=== PATIENT | female | born 1970 | race Caucasian/White ===

== ENCOUNTER 2019-09-13 11:55 | Day surgery (SDC) | payer BC ==
[2019-09-12 09:47] VITALS: BMI 29.2
[~2019-09-13 11:55] MED LIST: HEPARIN SODIUM,PORCINE 5,000 UNIT/ML 1 ML VIAL SQ ONE; LACTATED RINGERS 1,000 ML IV SCH; LIDOCAINE 1% (10MG/ML) FOR IV START INTRADERMA PRN; Pre Op ABX Message 1 EACH MISC MISCELLANE ONE
[2019-09-13] MEDS ORDERED: ONDANSETRON 4 MG/2 ML VIAL IVP ONE (12:36)
[2019-09-13] MEDS ORDERED: DEXAMETHASONE SOD PHOSPHATE 10 MG/ML 1 ML VIAL IV ONE (12:37)
--- NOTE | 2019-09-13 13:22 | P.GSHP ---
History of Present Illness H&P Date: 09/13/19 Chief Complaint: Lung cancer 48-year-old female recently diagnosed with left-sided lung cancer. Patient underwent left lower lobe lobectomy recently. Recovering nicely. Will be starting her chemotherapy soon. She has not had a port previously. Past Medical History Past Medical History: Asthma, Cancer, Fibromyalgia, Hypertension Additional Past Medical History / Comment(s): PMDD, LUNG CANCER-ON CHEMO History of Any Multi-Drug Resistant Organisms: None Reported Additional Past Surgical History / Comment(s): LEFT LOWER LUNG REMOVED 07/29/19. LIPOSUCTIONS Past Anesthesia/Blood Transfusion Reactions: No Reported Reaction Smoking Status: Never smoker - Past Family History Mother Family Medical History: No Reported History Medications and Allergies Home Medications Medication Instructions Recorded Confirmed Type Butalb/APAP/Caff 50-325-40Mg 1 tab PO Q4H PRN 09/12/19 09/12/19 History [Fioricet 50-325-40] Cyclobenzaprine [Flexeril] 10 mg PO TID PRN 09/12/19 09/12/19 History Folic Acid 1 mg PO DAILY 09/12/19 09/12/19 History Losartan [Cozaar] 50 mg PO DAILY 09/12/19 09/12/19 History Montelukast [Singulair] 10 mg PO HS 09/12/19 09/12/19 History Omeprazole [PriLOSEC] 40 mg PO DAILY 09/12/19 09/12/19 History Ondansetron [Zofran] 4 mg PO Q8HR PRN 09/12/19 09/12/19 History Sertraline [Zoloft] 50 mg PO DAILY PRN 09/12/19 09/12/19 History LORazepam [Ativan] 0.5 mg PO Q6HR PRN 09/13/19 09/13/19 History Allergies Allergy/AdvReac Type Severity Reaction Status Date / Time No Known Allergies Allergy Verified 09/13/19 12:14 Surgical - Exam Vital Signs Temp Pulse Resp BP Pulse Ox 97.4 F L 92 18 173/82 97 09/13/19 12:25 09/13/19 12:25 09/13/19 12:25 09/13/19 12:25 09/13/19 12:25 Physical exam: General: Well-developed, well-nourished HEENT: Normocephalic, sclerae nonicteric Abdomen: Nontender, nondistended Extremities: No edema Neuro: Alert and oriented Assessment and Plan (1) Lung cancer Narrative/Plan: Will proceed with Port-A-Cath placement at this time. Risks of bleeding, infection, DVT, pneumothorax, catheter malfunction, anesthesia related complications were discussed. The patient understands and wishes to proceed. Current Visit: Yes Status: Acute Code(s): C34.90 - MALIGNANT NEOPLASM OF UNSP PART OF UNSP BRONCHUS OR LUNG SNOMED Code(s): 243453341
[2019-09-13] MEDS ORDERED: MIDAZOLAM 2 MG/2 ML VIAL ONE (13:39)
[2019-09-13] MEDS ORDERED: fentaNYL (PF) 50 MCG/ML 2 ML AMP ONE (13:39)
[2019-09-13] MEDS ORDERED: LIDOCAINE 1% INJ 10MG/ML (20 ML MDV) ONE (13:39)
[2019-09-13] MEDS ORDERED: ONDANSETRON 4 MG/2 ML VIAL ONE (13:39)
[2019-09-13] MEDS ORDERED: DEXAMETHASONE SOD PHOSPHATE 10 MG/ML 1 ML VIAL ONE (13:39)
[2019-09-13] MEDS ORDERED: PROPOFOL 10 MG/ML 20 ML VIAL IV ONE (13:39)
[2019-09-13] MEDS ORDERED: LIDOCAINE 1% INJ 10MG/ML (20 ML MDV) SQ ONE (14:08)
[2019-09-13] MEDS ORDERED: HEPARIN SODIUM,PORCINE 100 UNIT/ML 5 ML VIAL IV ONE (14:09)
[2019-09-13] MEDS ORDERED: HYDROmorphone 0.5 MG/0.5 ML SYRINGE IVP PRN (14:33)
[2019-09-13] MEDS ORDERED: NALOXONE 0.4 MG/ML 1 ML VIAL IV PRN (14:33)
[2019-09-13] MEDS ORDERED: HYDROcodone/APAP 5-325MG 1 EACH TAB PO PRN (14:33)
--- NOTE | 2019-09-13 14:37 | P.OP ---
Date of Procedure: 09/13/19 Procedure(s) Performed: PREOPERATIVE DIAGNOSIS: Lung cancer POSTOPERATIVE DIAGNOSIS: Same PROCEDURE: Port-A-Cath placement with fluoroscopic and ultrasound guidance SURGEON: Sebas EBL: Minimal ANESTHESIA: Sedation COMPLICATIONS: None OPERATIVE PROCEDURE: Patient was brought and placed on the operative table in the supine position. The patient was sedated per anesthesia that time. The chest and neck were prepped and draped in usual sterile fashion. The ultrasound probe was used to identify the location of the right internal jugular vein. The skin was localized with lidocaine. The Seldinger needle was advanced into the IJ under ultrasound guidance. The wire was advanced through the needle under fluoroscopic guidance into the superior vena cava. A port pocket was created in the right infraclavicular location. The catheter was tunneled from the wire entrance site to the port pocket. The port was then connected to the catheter. The dilator introducer was threaded over the guidewire. The guidewire and dilator were then removed. The catheter was advanced through the introducer and introducer was then removed. The tip was seen to be in the right atrial junction via fluoroscopy. A picture of the radiograph showing the tip at the radial digital junction was taken. Port was flushed with both saline and a Hep- Lock solution. There was good flow both in and out of the port. The port was sutured in underlying tissues using 3-0 silk sutures. The subcutaneous tissues were reapproximated using 3-0 Vicryl sutures and the skin at both locations using 4-0 Monocryl sutures. Skin glue and sterile dressings then applied. DISPOSITION: Stable to recovery room Disposition: PACU
[2019-09-13 14:43] VITALS: TEMP 98.6
[2019-09-13 15:07] VITALS: RESP 16
--- NOTE | 2019-09-13 15:25 | XR ---
EXAMINATION TYPE: XR chest 1V confirm line [facility] DATE OF EXAM: 09/13/2019 COMPARISON: NONE HISTORY: Status post central venous catheter placement TECHNIQUE: Single frontal view of the chest is obtained. FINDINGS: Right-sided port is in place, right jugular approach, distal tips overlying the cavoatrial junction. There is no pneumothorax or pleural effusion. Subsegmental basilar atelectatic changes pos sible in the left lung base. Heart size is normal. IMPRESSION: No evident complication status post central venous catheter placement.
[2019-09-13] MEDS ORDERED: METOPROLOL TARTRATE 5 MG/5 ML VIAL IVP ONE (15:51)
[2019-09-13 16:30] VITALS: BP 147/88; PULSE 90
--- NOTE | 2019-09-14 09:38 | FL ---
Fluoroscopy HISTORY: Central venous catheter placement 4 seconds fluoroscopy time supplied to the referring clinician. 1 intraoperative C-arm images docume nt the procedure. See dictated report from general surgery.
== END 2019-09-13 16:40 | disposition home or self-care (01) ==
LOC: OR 11:55
PROVIDERS: ATTEND Surgery
DX: C34.92 Malignant neoplasm of unspecified part of left bronchus or lung (principal); I10 Essential (primary) hypertension; J45.909 Unspecified asthma, uncomplicated; M79.7 Fibromyalgia; Z90.2 Acquired absence of lung [part of]; Z79.899 Other long term (current) drug therapy
CPT/HCPCS: 81025; 77001; 36561; C1788; J2250; J1644; J1642; J1100; J0690; J2405; J2001; J3010; J2704

== ENCOUNTER → 2019-10-25 | Outpatient (CLI) | payer BC ==
--- NOTE | 2019-10-26 09:56 | ECHOF ---
Referral Reason:Z01.818 Chemo Exposure MEASUREMENTS -------- HEIGHT: 162.6 cm WEIGHT: 77.6 kg BP: RVIDd: 3.0 cm (< 3.3) IVSd: 1.2 cm (0.6 - 1.1) LVIDd: 3.6 cm (3.9 - 5.3) LVPWd: 1.2 cm (0.6 - 1.1) IVSs: 1.8 cm LVIDs: 2.1 cm LVPWs: 1.5 cm LAESV Index (A-L): 15.70 ml/m Ao Diam: 2.5 cm (2.0 - 3.7) AV Cusp: 1.8 cm (1.5 - 2.6) MV EXCURSION: 14.881 mm (> 18.000) MV EF SLOPE: 63 mm/s (70 - 150) EPSS: 0.4 cm MV E Hany: 0.66 m/s MV DecT: 166 ms MV A Hany: 0.92 m/s MV E/A Ratio: 0.72 RAP: 5.00 mmHg RVSP: 26.32 mmHg FINDINGS -------- Sinus rhythm. This was a technically adequate study. The left ventricular size is normal. There is mild concentric left ventricular hypertrophy. Overa ll left ventricular systolic function is normal with, an EF between 55 - 60 %. The diastolic fillin g pattern is normal for the age of the patient 12.64. The right ventricle is normal in size. Normal LA size by volume 22+/-6 ml/m2. The right atrial size is normal. Interatrial and interventricular septum intact. There is no evidence of aortic regurgitation. There is no evidence of aortic stenosis. There is trace to mild mitral regurgitation. Mild tricuspid regurgitation present. There is no evidence of pulmonary hypertension. The right v entricular systolic pressure, as measured by Doppler, is 26.32mmHg. There is no pulmonic regurgitation present. The aortic root size is normal. Normal inferior vena cava with normal inspiratory collapse consistent with estimated right atrial pre ssure of 5 mmHg. Echo free space may represent effusion or a pericardial fat pad. CONCLUSIONS -------- 1. The left ventricular size is normal. 2. There is mild concentric left ventricular hypertrophy. 3. Overall left ventricular systolic function is normal with, an EF between 55 - 60 %. 4. The diastolic filling pattern is normal for the age of the patient 12.64 5. There is trace to mild mitral regurgitation. 6. Mild tricuspid regurgitation present. 7. Echo free space may represent effusion or a pericardial fat pad. CONVEYOR SYSTEM DISPATCHER: Gaby Miller RDCS
== END | disposition home or self-care (01) ==
LOC: RADECHMAIN 14:38
PROVIDERS: ATTEND Internal Medicine Hematology & Oncology
DX: Z01.818 Encounter for other preprocedural examination (principal); I08.1 Rheumatic disorders of both mitral and tricuspid valves
CPT/HCPCS: 93306

== ENCOUNTER 2019-11-07 21:03 | Inpatient (IN) | payer BC ==
[2019-11-07] MEDS ORDERED: SODIUM CHLORIDE 0.9% 2,000 ML IV ONE (21:16)
[2019-11-07 22:03] LABS: Glucose,Whole Blood >600 mg/dL (75-99)
[2019-11-07] MEDS: INSULIN REGULAR 100 UNIT in SODIUM CHLORIDE 0.9% 100 ML IV SCH (22:08)
[2019-11-07 22:15] LABS: Basophils % (A) 0 %; Eosinophils % (A) 0 %; HCT 42.2 % (34.0-46.0); HGB 13.7 gm/dL (11.4-16.0); Lymphocytes # (A) 1.4 k/uL (1.0-4.8); Lymphocytes % (A) 19 %; MCHC 32.5 g/dL (31.0-37.0); MCV 101.6 fL (80.0-100.0); Macrocytosis Slight; Mean Platelet Volume 7.9; Monocytes # (A) 0.2 k/uL (0-1.0); Monocytes % (A) 2 %; Neutrophils # (A) 5.6 k/uL (1.3-7.7); Neutrophils % (A) 78 %; Platelet Count 148 k/uL (150-450); RBC 4.15 m/uL (3.80-5.40); RDW 14.6 % (11.5-15.5); WBC 7.2 k/uL (3.8-10.6)
[2019-11-07 22:16] LABS: VBG PH 7.3 (7.31-7.41)
[2019-11-07 22:17] LABS: Appearance,Urine Clear (Clear); Bilirubin,Urine Negative (Negative); Blood,Urine Moderate (Negative); Color,Urine Colorless; Glucose,Urine (UA) 4+ (Negative); Hyaline Casts,Urine 1 /lpf (0-2); Ketones,Urine 1+ (Negative); Leukocyte Esterase,Urine Negative (Negative); Nitrite,Urine Negative (Negative); Protein,Urine Negative (Negative); RBC,Urine 1 /hpf (0-5); Squamous Epithelial Cell,Urine <1 /hpf (0-4); Urobilinogen,Urine <2.0 mg/dL (<2.0); WBC,Urine 1 /hpf (0-5)
[2019-11-07 22:24] LABS: ALT 128 U/L (4-34); AST 73 U/L (14-36); African American GFR (CKD) 84 (>60 ml/min/1.73 sqM); Albumin 4.6 g/dL (3.5-5.0); Alkaline Phosphatase 217 U/L (38-126); Anion Gap 21 mmol/L; Blood Urea Nitrogen 32 mg/dL (7-17); Calcium 10.2 mg/dL (8.4-10.2); Carbon Dioxide 17 mmol/L (22-30); Chloride 91 mmol/L (98-107); Non-African American GFR(CKD) 73 (>60 ml/min/1.73 sqM); Potassium 5.1 mmol/L (3.5-5.1); Sodium 129 mmol/L (137-145); Total Bilirubin 0.8 mg/dL (0.2-1.3); Total Protein 7.1 g/dL (6.3-8.2)
[2019-11-07 22:35] LABS: Glucose 1074 mg/dL (74-99)
--- NOTE | 2019-11-07 22:53 | ED ---
General Adult HPI - General Source: patient, family, RN notes reviewed Mode of arrival: ambulatory Limitations: no limitations <Fortunato De La Rosa - Last Filed: 11/07/19 22:45> <Christal Viera - Last Filed: 11/08/19 07:20> - General Chief complaint: Recheck/Abnormal Lab/Rx Stated complaint: High blood sugar Time Seen by Provider: 11/07/19 21:09 - History of Present Illness Initial comments: This a 49-year-old female presents emergency Department chief complaint of abnormal labs. Patient states that she went in for IV fluids today and had some labs drawn by her oncologist called her with an elevated glucose. Patient has no history of diabetes. Patient states she recently finished her chemotherapy for lung cancer. Patient states that she's been very thirsty, lethargic very fatigued. Patient denies any abdominal pain. Denies any known fevers or chills. Patient states that she was on some steroids. Patient denies any other associated complaints. (Fortunato De La Rosa) - Related Data Home Medications Medication Instructions Recorded Confirmed Butalb/APAP/Caff 50-325-40Mg 1 tab PO Q4H PRN 09/12/19 11/07/19 [Fioricet 50-325-40] Folic Acid 1 mg PO DAILY 09/12/19 11/07/19 Losartan [Cozaar] 50 mg PO DAILY 09/12/19 11/07/19 Omeprazole [PriLOSEC] 40 mg PO DAILY 09/12/19 11/07/19 Ondansetron [Zofran] 4 mg PO Q8HR PRN 09/12/19 11/07/19 LORazepam [Ativan] 0.5 mg PO Q6HR PRN 09/13/19 11/07/19 Metoprolol Tartrate [Lopressor] 50 mg PO DAILY PRN 09/13/19 11/07/19 Albuterol Inhaler [Ventolin Hfa 1 puff INHALATION RT-QID PRN 11/07/19 11/07/19 Inhaler] Cetirizine HCl [Zyrtec] 10 mg PO DAILY 11/07/19 11/07/19 Fluticasone/Salmeterol [Advair 1 puff PO DAILY PRN 11/07/19 11/07/19 100-50 Diskus] OLANZapine [ZyPREXA] 2.5 mg PO HS 11/07/19 11/07/19 Allergies Allergy/AdvReac Type Severity Reaction Status Date / Time No Known Allergies Allergy Verified 11/07/19 23:25 Review of Systems ROS Other: All systems not noted in ROS Statement are negative. <Fortunato De La Rosa - Last Filed: 11/07/19 22:45> ROS Other: All systems not noted in ROS Statement are negative. <Christal Viera - Last Filed: 11/08/19 07:20> ROS Statement: Those systems with pertinent positive or pertinent negative responses have been documented in the HPI. Past Medical History Past Medical History: Asthma, Cancer, Fibromyalgia, Hypertension Additional Past Medical History / Comment(s): PMDD, LUNG CANCER-ON CHEMO History of Any Multi-Drug Resistant Organisms: None Reported Additional Past Surgical History / Comment(s): LEFT LOWER LUNG REMOVED 07/29/19. LIPOSUCTIONS Past Anesthesia/Blood Transfusion Reactions: No Reported Reaction Past Psychological History: No Psychological Hx Reported Smoking Status: Never smoker Past Alcohol Use History: None Reported, Occasional Past Drug Use History: None Reported - Past Family History Mother Family Medical History: No Reported History <Fortunato De La Rosa - Last Filed: 11/07/19 22:45> General Exam Limitations: no limitations General appearance: alert, in no apparent distress Head exam: Present: atraumatic, normocephalic, normal inspection Eye exam: Present: normal appearance, PERRL, EOMI. Absent: scleral icterus, conjunctival injection, periorbital swelling ENT exam: Present: normal exam, normal oropharynx, mucous membranes moist, TM's normal bilaterally Neck exam: Present: normal inspection, full ROM. Absent: tenderness, meningismus, lymphadenopathy Respiratory exam: Present: normal lung sounds bilaterally. Absent: respiratory distress, wheezes, rales, rhonchi, stridor Cardiovascular Exam: Present: normal rhythm, tachycardia, normal heart sounds. Absent: systolic murmur, diastolic murmur, rubs, gallop, clicks GI/Abdominal exam: Present: soft, normal bowel sounds. 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 ] Respiratory 22 18 16 Rate Blood Pressure 139/92 125/88 Blood Pressure 127/87 [Left Arm] O2 Sat by Pulse 98 96 Oximetry EKG Findings - EKG Comments: EKG Findings:: EKG performed at 22:72 normal sinus rhythm rate of 99 CT 136 QRS 80 QT/QTC 350/449 <Fortunato De La Rosa - Last Filed: 11/07/19 22:45> Medical Decision Making - Lab Data Result diagrams: 11/07/19 22:06 11/07/19 22:06 <Fortunato De La Rosa - Last Filed: 11/07/19 22:45> - Lab Data Result diagrams: 11/08/19 05:43 11/08/19 05:43 <Christal Viera - Last Filed: 11/08/19 07:20> - Medical Decision Making 49-year-old female presentedfor hyperglycemia. Patient has glucose of 1074. Patient has no history of diabetes. Patient was started on IV fluids, insulin. Patient admitted for further management treatment. (Fortunato De La Rosa) - Lab Data Lab Results 11/07/19 11/07/19 11/07/19 Range/Units 22:01 22:06 22:06 WBC 7.2 (3.8-10.6) k/uL RBC 4.15 (3.80-5.40) m/uL Hgb 13.7 (11.4-16.0) gm/dL Hct 42.2 (34.0-46.0) % MCV 101.6 H (80.0-100.0) fL MCH 33.0 (25.0-35.0) pg MCHC 32.5 (31.0-37.0) g/dL RDW 14.6 (11.5-15.5) % Plt Count 148 L (150-450) k/uL Neutrophils % 78 % Lymphocytes % 19 % Monocytes % 2 % Eosinophils % 0 % Basophils % 0 % Neutrophils # 5.6 (1.3-7.7) k/uL Lymphocytes # 1.4 (1.0-4.8) k/uL Monocytes # 0.2 (0-1.0) k/uL Eosinophils # 0.0 (0-0.7) k/uL Basophils # 0.0 (0-0.2) k/uL Macrocytosis Slight VBG pH (7.31-7.41) VBG pCO2 (37-51) mmHg VBG HCO3 (24-28) mmol/L Sodium 129 L (137-145) mmol/L Potassium 5.1 (3.5-5.1) mmol/L Chloride 91 L (98-107) mmol/L Carbon Dioxide 17 L (22-30) mmol/L Anion Gap 21 mmol/L BUN 32 H (7-17) mg/dL Creatinine 0.92 (0.52-1.04) mg/dL Est GFR (CKD-EPI)AfAm 84 (>60 ml/min/1.73 sqM) Est GFR (CKD-EPI)NonAf 73 (>60 ml/min/1.73 sqM) Glucose 1074 H* (74-99) mg/dL POC Glucose (mg/dL) >600 H (75-99) mg/dL POC Glu Eyeglass Frames Polisher ID Laila, [place] Lactic Ac Sepsis Rflx Plasma Lactic Acid Abel (0.7-2.0) mmol/L Calcium 10.2 (8.4-10.2) mg/dL Magnesium 2.0 (1.6-2.3) mg/dL Total Bilirubin 0.8 (0.2-1.3) mg/dL AST 73 H (14-36) U/L ALT 128 H (4-34) U/L Alkaline Phosphatase 217 H (38-126) U/L Total Protein 7.1 (6.3-8.2) g/dL Albumin 4.6 (3.5-5.0) g/dL Lipase 85 (23-300) U/L Urine Color Urine Appearance (Clear) Urine pH (5.0-8.0) Ur Specific [place] (1.001-1.035) Urine Protein (Negative) Urine Glucose (UA) (Negative) Urine Ketones (Negative) Urine Blood (Negative) Urine Nitrite (Negative) Urine Bilirubin (Negative) Urine Urobilinogen (<2.0) mg/dL Ur Leukocyte Esterase (Negative) Urine RBC (0-5) /hpf Urine WBC (0-5) /hpf Ur Squamous Epith Cells (0-4) /hpf Hyaline Casts (0-2) /lpf Acetone, Qual Positive (Negative) 11/07/19 11/07/19 11/07/19 Range/Units 22:06 22:06 22:06 WBC (3.8-10.6) k/uL RBC (3.80-5.40) m/uL Hgb (11.4-16.0) gm/dL Hct (34.0-46.0) % MCV (80.0-100.0) fL MCH (25.0-35.0) pg MCHC (31.0-37.0) g/dL RDW (11.5-15.5) % Plt Count (150-450) k/uL Neutrophils % % Lymphocytes % % Monocytes % % Eosinophils % % Basophils % % Neutrophils # (1.3-7.7) k/uL Lymphocytes # (1.0-4.8) k/uL Monocytes # (0-1.0) k/uL Eosinophils # (0-0.7) k/uL Basophils # (0-0.2) k/uL Macrocytosis VBG pH 7.30 L (7.31-7.41) VBG pCO2 41 (37-51) mmHg VBG HCO3 20 L (24-28) mmol/L Sodium (137-145) mmol/L Potassium (3.5-5.1) mmol/L Chloride (98-107) mmol/L Carbon Dioxide (22-30) mmol/L Anion Gap mmol/L BUN (7-17) mg/dL Creatinine (0.52-1.04) mg/dL Est GFR (CKD-EPI)AfAm (>60 ml/min/1.73 sqM) Est GFR (CKD-EPI)NonAf (>60 ml/min/1.73 sqM) Glucose (74-99) mg/dL POC Glucose (mg/dL) (75-99) mg/dL POC Glu Eyeglass Frames Polisher ID Lactic Ac Sepsis Rflx Plasma Lactic Acid Abel 2.5 H* (0.7-2.0) mmol/L Calcium (8.4-10.2) mg/dL Magnesium (1.6-2.3) mg/dL Total Bilirubin (0.2-1.3) mg/dL AST (14-36) U/L ALT (4-34) U/L Alkaline Phosphatase (38-126) U/L Total Protein (6.3-8.2) g/dL Albumin (3.5-5.0) g/dL Lipase (23-300) U/L Urine Color Colorless Urine Appearance Clear (Clear) Urine pH 5.0 (5.0-8.0) Ur Specific [place] 1.030 (1.001-1.035) Urine Protein Negative (Negative) Urine Glucose (UA) 4+ H (Negative) Urine Ketones 1+ H (Negative) Urine Blood Moderate H (Negative) Urine Nitrite Negative (Negative) Urine Bilirubin Negative (Negative) Urine Urobilinogen <2.0 (<2.0) mg/dL Ur Leukocyte Esterase Negative (Negative) Urine RBC 1 (0-5) /hpf Urine WBC 1 (0-5) /hpf Ur Squamous Epith Cells <1 (0-4) /hpf Hyaline Casts 1 (0-2) /lpf Acetone, Qual (Negative) 11/07/19 11/07/19 Range/Units 22:35 23:11 WBC (3.8-10.6) k/uL RBC (3.80-5.40) m/uL Hgb (11.4-16.0) gm/dL Hct (34.0-46.0) % MCV (80.0-100.0) fL MCH (25.0-35.0) pg MCHC (31.0-37.0) g/dL RDW (11.5-15.5) % Plt Count (150-450) k/uL Neutrophils % % Lymphocytes % % Monocytes % % Eosinophils % % Basophils % % Neutrophils # (1.3-7.7) k/uL Lymphocytes # (1.0-4.8) k/uL Monocytes # (0-1.0) k/uL Eosinophils # (0-0.7) k/uL Basophils # (0-0.2) k/uL Macrocytosis VBG pH (7.31-7.41) VBG pCO2 (37-51) mmHg VBG HCO3 (24-28) mmol/L Sodium (137-145) mmol/L Potassium (3.5-5.1) mmol/L Chloride (98-107) mmol/L Carbon Dioxide (22-30) mmol/L Anion Gap mmol/L BUN (7-17) mg/dL Creatinine (0.52-1.04) mg/dL Est GFR (CKD-EPI)AfAm (>60 ml/min/1.73 sqM) Est GFR (CKD-EPI)NonAf (>60 ml/min/1.73 sqM) Glucose (74-99) mg/dL POC Glucose (mg/dL) >600 H (75-99) mg/dL POC Glu Eyeglass Frames Polisher ID Savannah Vazquez Lactic Ac Sepsis Rflx Y Plasma Lactic Acid Abel (0.7-2.0) mmol/L Calcium (8.4-10.2) mg/dL Magnesium (1.6-2.3) mg/dL Total Bilirubin (0.2-1.3) mg/dL AST (14-36) U/L ALT (4-34) U/L Alkaline Phosphatase (38-126) U/L Total Protein (6.3-8.2) g/dL Albumin (3.5-5.0) g/dL Lipase (23-300) U/L Urine Color Urine Appearance (Clear) Urine pH (5.0-8.0) Ur Specific [place] (1.001-1.035) Urine Protein (Negative) Urine Glucose (UA) (Negative) Urine Ketones (Negative) Urine Blood (Negative) Urine Nitrite (Negative) Urine Bilirubin (Negative) Urine Urobilinogen (<2.0) mg/dL Ur Leukocyte Esterase (Negative) Urine RBC (0-5) /hpf Urine WBC (0-5) /hpf Ur Squamous Epith Cells (0-4) /hpf Hyaline Casts (0-2) /lpf Acetone, Qual (Negative) Critical Care Time Critical Care Time: Yes Total Critical Care Time: 35 <Fortunato De La Rosa - Last Filed: 11/07/19 22:45> Critical Care Time: Total 35 minutes of critical care time is initially evaluated the patient, reviewed past medical history according labs, EKG. Patient started on IV fluid bolus, maintenance fluids, insulin drip. Patient will be admitted for further management treatment case discussed with admitting physician. (Fortunato De La Rosa) Disposition <Fortunato De La Rosa - Last Filed: 11/07/19 22:45> <Christal Viera - Last Filed: 11/08/19 07:20> Clinical Impression: Diabetes mellitus, new onset, Hyperglycemia, Metabolic acidosis, DKA (diabetic ketoacidoses) Disposition: ADMITTED IP TO THIS HOSP Condition: Serious
[2019-11-07 23:13] LABS: Glucose,Whole Blood >600 mg/dL (75-99)
[2019-11-08 00:12] LABS: Glucose,Whole Blood 553 mg/dL (75-99)
[2019-11-08] MEDS: SODIUM CHLORIDE 0.9% 1,000 ML IV SCH ×5 (00:21→19:59)
[2019-11-08 00:32] LABS: Glucose,Whole Blood 569 mg/dL (75-99)
[2019-11-08 02:05] LABS: African American GFR (CKD) >90 (>60 ml/min/1.73 sqM); Anion Gap 11 mmol/L; Blood Urea Nitrogen 28 mg/dL (7-17); Carbon Dioxide 20 mmol/L (22-30); Chloride 106 mmol/L (98-107); Non-African American GFR(CKD) >90 (>60 ml/min/1.73 sqM); Potassium 3.9 mmol/L (3.5-5.1); Sodium 137 mmol/L (137-145)
[2019-11-08 02:07] LABS: Glucose 531 mg/dL (74-99)
[2019-11-08 02:09] LABS: Glucose,Whole Blood 446 mg/dL (75-99)
[2019-11-08 03:05] LABS: Glucose,Whole Blood 418 mg/dL (75-99)
[2019-11-08 04:07] LABS: Glucose,Whole Blood 371 mg/dL (75-99)
[2019-11-08 05:04] LABS: Glucose,Whole Blood 338 mg/dL (75-99)
[2019-11-08 06:03] LABS: Glucose,Whole Blood 306 mg/dL (75-99)
[2019-11-08 06:04] LABS: HCT 34.4 % (34.0-46.0); HGB 11.5 gm/dL (11.4-16.0); MCH 32.4 pg (25.0-35.0); MCHC 33.3 g/dL (31.0-37.0); MCV 97.1 fL (80.0-100.0); Platelet Count 115 k/uL (150-450); RBC 3.54 m/uL (3.80-5.40); RDW 14.6 % (11.5-15.5); WBC 8.3 k/uL (3.8-10.6)
[2019-11-08 06:13] LABS: African American GFR (CKD) >90 (>60 ml/min/1.73 sqM); Anion Gap 7 mmol/L; Blood Urea Nitrogen 23 mg/dL (7-17); Carbon Dioxide 26 mmol/L (22-30); Chloride 108 mmol/L (98-107); Glucose 297 mg/dL (74-99); Non-African American GFR(CKD) 88 (>60 ml/min/1.73 sqM); Phosphorus 2.6 mg/dL (2.5-4.5); Potassium 3.8 mmol/L (3.5-5.1); Sodium 141 mmol/L (137-145)
[2019-11-08] MEDS ORDERED: D5-0.45% NACL WITH KCL 20MEQ/L 1,000 ML IV SCH (07:00)
[2019-11-08 07:19] LABS: Glucose,Whole Blood 219 mg/dL (75-99)
[2019-11-08 08:03] LABS: Glucose,Whole Blood 208 mg/dL (75-99)
[2019-11-08] MEDS: INSULIN REGULAR 100 UNIT in SODIUM CHLORIDE 0.9% 100 ML IV SCH (08:09)
--- NOTE | 2019-11-08 09:28 | XR ---
EXAMINATION TYPE: XR chest 1V portable DATE OF EXAM: 11/08/2019 COMPARISON: Prior chest x-ray 09/13/2019 HISTORY: Left lower lobe lung mass TECHNIQUE: Single frontal view of the chest is obtained. FINDINGS: Findings are similar to prior exam. Right-sided Port-A-Cath is present with the distal tip overlying the superior vena cava, right jugular approach. There is no evident pneumothorax or pleura l effusion. There is some retrocardiac density suspected. Heart size is stable, patient is rotated. T here may be spinal curvature. Bone mineralization is normal. IMPRESSION: Some retrocardiac density is indeterminate
[2019-11-08] MEDS ORDERED: INSULIN DETEMIR (LEVEMIR) 100 UNIT/ML SYR SQ ONE ×2 (09:39→18:00)
[2019-11-08] MEDS ORDERED: METOPROLOL TARTRATE 50 MG TAB PO PRN (11:08)
[2019-11-08] MEDS ORDERED: ALBUTEROL HFA INHALER INHALATION PRN (11:08)
[2019-11-08] MEDS ORDERED: ONDANSETRON 4 MG TAB PO PRN (11:08)
[2019-11-08] MEDS ORDERED: BUTALB/APAP/CAFF 50-325-40MG TAB PO PRN (11:08)
[2019-11-08 12:26] LABS: Glucose,Whole Blood 406 mg/dL (75-99)
[2019-11-08] MEDS: PANTOPRAZOLE 40 MG TABLET PO SCH (12:36)
[2019-11-08] MEDS: LOSARTAN 50 MG TAB PO SCH (12:39)
[2019-11-08] MEDS: FOLIC ACID 1 MG TAB PO SCH (12:39)
[2019-11-08] MEDS: INSULIN ASPART (NovoLOG) 100 UNIT/ML VIAL SQ SCH ×4 (12:39→20:21)
[2019-11-08] MEDS: LORATADINE 10 MG TAB PO SCH (12:39)
--- NOTE | 2019-11-08 13:02 | P.CNPUL ---
History of Present Illness Consult date: 11/08/19 Requesting physician: Paul More Reason for consult: other (Acute DKA) Chief complaint: High blood sugar. History of present illness: This is a 49-year-old female with recently diagnosed bronchogenic carcinoma, patient underwent lobectomy at [facility] back in July. Patient was found to have 2 separate malignant lesions in the same lobe, underwent lobectomy and she was advised to follow up with oncology. Patient saw Dr. Dawson and she was started on chemotherapy about 6 weeks ago. She had a salvador catheter placed by Dr. villalobos on 09/13/19. Patient has been complaining of weakness, thirst he most of the time, generalized fatigue, and her oncologist recommended IV fluids which were given in his office, and labs were drawn. Patient was later notified that her blood sugar is extremely high, and she needed to come to the emergency room. Patient is all done with her chemotherapy for lung cancer. She has been receiving steroids along with her chemotherapy. She had no previous history of diabetes. But she did have gestational diabetes years ago. Repeat blood sugar in the ER was 1232. Her basic metabolic profile showed pseudohyponatremia with a sodium of 129. Bicarb was 17 and anion gap was 21. She had positive ketones. Normal lipase. Patient was admitted, started on the DKA protocol, and this consult was initiated. Overnight the patient was on insulin drip, and when I saw her this morning, her labs seem to be significantly improved. Anion gap has been closed, and her blood sugar was running to 97 this morning. Patient was on D5 45 which I changed to 0.9 normal saline, and I recommended placing the patient on the subcu insulin protocol. Levemir insulin was also ordered. Plan to transfer the patient to a regular medical floor today. Review of Systems Constitutional: Weakness fatigue malaise, no weight loss. HEENT: Negative. Pulmonary: Negative. GI: Negative. Genitourinary: Frequent urination. Endocrine: Excessive thirst and excessive polydipsia. Musculoskeletal: Weakness and fatigue Endocrine: Negative Hematologic: Negative Psychiatric: Negative Skin: Negative Cardiac: Negative Past Medical History Past Medical History: Asthma, Cancer, Hypertension Additional Past Medical History / Comment(s): PMDD, LUNG CANCER-ON CHEMO History of Any Multi-Drug Resistant Organisms: None Reported Additional Past Surgical History / Comment(s): LEFT LOWER LUNG REMOVED 07/29/19. LIPOSUCTIONS Past Anesthesia/Blood Transfusion Reactions: No Reported Reaction Additional Past Anesthesia/Blood Transfusion Reaction / Comment(s): Never had a blood transfusion Past Psychological History: Anxiety Smoking Status: Never smoker Past Alcohol Use History: None Reported, Occasional Additional Past Alcohol Use History / Comment(s): NOT CURRENTLY USING ALCOHOL RELATED TO CURRENT CHEMO Past Drug Use History: None Reported - Past Family History Mother Family Medical History: No Reported History Medications and Allergies Home Medications Medication Instructions Recorded Confirmed Type Butalb/APAP/Caff 50-325-40Mg 1 tab PO Q4H PRN 09/12/19 11/07/19 History [Fioricet 50-325-40] Folic Acid 1 mg PO DAILY 09/12/19 11/07/19 History Losartan [Cozaar] 50 mg PO DAILY 09/12/19 11/07/19 History Omeprazole [PriLOSEC] 40 mg PO DAILY 09/12/19 11/07/19 History Ondansetron [Zofran] 4 mg PO Q8HR PRN 09/12/19 11/07/19 History LORazepam [Ativan] 0.5 mg PO Q6HR PRN 09/13/19 11/07/19 History Metoprolol Tartrate [Lopressor] 50 mg PO DAILY PRN 09/13/19 11/07/19 History Albuterol Inhaler [Ventolin Hfa 1 puff INHALATION RT-QID PRN 11/07/19 11/07/19 History Inhaler] Cetirizine HCl [Zyrtec] 10 mg PO DAILY 11/07/19 11/07/19 History Fluticasone/Salmeterol [Advair 1 puff PO DAILY PRN 11/07/19 11/07/19 History 100-50 Diskus] OLANZapine [ZyPREXA] 2.5 mg PO HS 11/07/19 11/07/19 History Allergies Allergy/AdvReac Type Severity Reaction Status Date / Time No Known Allergies Allergy Verified 11/07/19 23:25 Physical Exam Vitals: Vital Signs Temp Pulse Pulse Resp BP BP Pulse Ox 11/08/19 09:00 87 15 126/82 97 11/08/19 08:00 98 F 90 16 123/81 96 08/11/20 07:00 79 16 121/76 96 11/08/19 06:00 86 16 115/80 96 11/08/19 05:00 82 16 119/77 95 11/08/19 04:00 98.2 F 83 13 104/72 95 11/08/19 03:00 83 16 105/73 96 11/08/19 02:00 86 16 100/69 95 11/08/19 01:45 98 F 91 18 123/83 96 11/08/19 00:13 83 16 125/88 96 11/07/19 23:50 98 F 90 18 127/87 11/07/19 21:04 98.0 F 120 H 22 139/92 98 Intake and Output 11/07/19 11/08/19 11/08/19 22:59 06:59 14:59 Intake Total 1451.397 449.603 Output Total 350 40 Balance 1101.397 409.603 Intake: IV 1200 400 Sodium Chloride 0.9% 1, 1200 400 000 ml @ 200 mls/hr IV . Q5H ALESSANDRA Rx#:[id number] Intake, IV Titration 51.397 49.603 Amount Insulin Regular 100 unit 51.397 49.603 In Sodium Chloride 0.9% 100 ml @ 0.1 UNITS/KG/HR 7.788 mls/hr IV .[id number] ALESSANDRA Rx#:[id number] Oral 200 Output: Urine 350 40 Other: # Voids 1 Weight 77.111 kg 77.111 kg Physical Exam: Revealed 49-year-old female in no distress. Head: Atraumatic, normocephalic. HEENT:[Neck is supple.] [No neck masses.] [No thyromegaly.] [No JVD.] Chest: [Clear throughout, no crackles, no rhonchi, no wheezes.] Cardiac Exam: [Normal S1 and S2, no S3 gallop, no murmur.] Abdomen: [Soft, nontender, no megaly, no rebound, no guarding, normal bowel sounds.] Extremities: [No clubbing, no edema, no cyanosis.] Neurological Exam: [No focal neurologic deficit.] Alert oriented 3. Psychiatric: Normal mood, affect and normal mental status examination. Skin: No rashes. Lymphatics: No lymphadenopathy. Results - Laboratory Findings CBC and BMP: 11/08/19 05:43 11/08/19 05:43 Abnormal lab findings: Abnormal Labs 11/07/19 11/07/19 11/07/19 22:01 22:06 22:06 RBC MCV 101.6 H Plt Count 148 L VBG pH VBG HCO3 Sodium 129 L Chloride 91 L Carbon Dioxide 17 L BUN 32 H Glucose 1074 H* POC Glucose (mg/dL) >600 H Plasma Lactic Acid Abel AST 73 H ALT 128 H Alkaline Phosphatase 217 H Urine Glucose (UA) Urine Ketones Urine Blood 11/07/19 11/07/19 11/07/19 22:06 22:06 22:06 RBC MCV Plt Count VBG pH 7.30 L VBG HCO3 20 L Sodium Chloride Carbon Dioxide BUN Glucose POC Glucose (mg/dL) Plasma Lactic Acid Abel 2.5 H* AST ALT Alkaline Phosphatase Urine Glucose (UA) 4+ H Urine Ketones 1+ H Urine Blood Moderate H 11/07/19 11/08/19 11/08/19 23:11 00:10 00:31 RBC MCV Plt Count VBG pH VBG HCO3 Sodium Chloride Carbon Dioxide BUN Glucose POC Glucose (mg/dL) >600 H 553 H 569 H Plasma Lactic Acid Abel AST ALT Alkaline Phosphatase Urine Glucose (UA) Urine Ketones Urine Blood 11/08/19 11/08/19 11/08/19 01:38 01:38 02:07 RBC MCV Plt Count VBG pH VBG HCO3 Sodium Chloride Carbon Dioxide 20 L BUN 28 H Glucose 531 H* POC Glucose (mg/dL) 446 H Plasma Lactic Acid Abel 2.6 H* AST ALT Alkaline Phosphatase Urine Glucose (UA) Urine Ketones Urine Blood 11/08/19 11/08/19 11/08/19 03:04 04:05 05:02 RBC MCV Plt Count VBG pH VBG HCO3 Sodium Chloride Carbon Dioxide BUN Glucose POC Glucose (mg/dL) 418 H 371 H 338 H Plasma Lactic Acid Abel AST ALT Alkaline Phosphatase Urine Glucose (UA) Urine Ketones Urine Blood 11/08/19 11/08/19 11/08/19 05:43 05:43 05:43 RBC 3.54 L MCV Plt Count 115 L VBG pH VBG HCO3 Sodium Chloride 108 H Carbon Dioxide BUN 23 H Glucose 297 H POC Glucose (mg/dL) Plasma Lactic Acid Abel 2.3 H* AST ALT Alkaline Phosphatase Urine Glucose (UA) Urine Ketones Urine Blood 11/08/19 11/08/19 11/08/19 06:01 07:17 08:01 RBC MCV Plt Count VBG pH VBG HCO3 Sodium Chloride Carbon Dioxide BUN Glucose POC Glucose (mg/dL) 306 H 219 H 208 H Plasma Lactic Acid Abel AST ALT Alkaline Phosphatase Urine Glucose (UA) Urine Ketones Urine Blood 11/08/19 12:24 RBC MCV Plt Count VBG pH VBG HCO3 Sodium Chloride Carbon Dioxide BUN Glucose POC Glucose (mg/dL) 406 H Plasma Lactic Acid Abel AST ALT Alkaline Phosphatase Urine Glucose (UA) Urine Ketones Urine Blood - Diagnostic Findings Chest x-ray: image reviewed (Chest x-ray showed no evidence of active disease.) Assessment and Plan Assessment: Impression: Acute DKA. Suspect new onset diabetes History of gestational diabetes. History of bronchogenic carcinoma and previous lobectomy. Left lower lobe History of mild stable bronchial asthma. History of fibromyalgia. Benign essential hypertension. Recommendation: Continue to follow the protocol for DKA. Patient will be placed on 0.9 normal saline at 1 25 mL per hour. Changed to sliding scale insulin and follow the protocol. Changed to Levemir insulin at 10 units subcu daily. Continue home meds. Transfer patient out of the ICU to a regular medical floor. We will continue to follow. Patient is to follow-up with Dr. Choudhury post discharge. Time with Patient: Greater than 30
[2019-11-08 13:47] LABS: Prothrombin Time 10.3 sec (9.0-12.0)
[2019-11-08 13:55] LABS: ALT 104 U/L (4-34); AST 77 U/L (14-36); African American GFR (CKD) >90 (>60 ml/min/1.73 sqM); Albumin 3.6 g/dL (3.5-5.0); Alkaline Phosphatase 130 U/L (38-126); Anion Gap 7 mmol/L; Blood Urea Nitrogen 24 mg/dL (7-17); Calcium 8.4 mg/dL (8.4-10.2); Carbon Dioxide 22 mmol/L (22-30); Chloride 106 mmol/L (98-107); Glucose 439 mg/dL (74-99); Magnesium 1.8 mg/dL (1.6-2.3); Non-African American GFR(CKD) >90 (>60 ml/min/1.73 sqM); Potassium 4.5 mmol/L (3.5-5.1); Sodium 135 mmol/L (137-145); Total Bilirubin 0.5 mg/dL (0.2-1.3)
[2019-11-08 13:58] VITALS: BMI 29.2
[2019-11-08 16:55] LABS: Glucose,Whole Blood 453 mg/dL (75-99)
--- NOTE | 2019-11-08 17:31 | P.CONS ---
History of Present Illness - Reason for Consult Consult date: 11/08/19 EGFR Lung Cancer Requesting physician: Afia Martínez - Chief Complaint Hyperglycemia - History of Present Illness This is a very nice lady lady who initially had a CT scan of abdomen in the for kidney stone which revealed LLL lung nodule which led to CT scan of chest which revealed bilateral lung nodules,she had also a PET scan in September/2018 and at that time,it was decided to repeat CT scan of chest in 6 months which was done in 04/2019 which revealed enlarging suspicious LLL lung nodule (the remaining 3 nodules were stable). She was seen by Dr Choudhury and referred to Dr Herrera at [facility]. On 07/29/2019,she underwent robotic assisted LLL lobectomy and LN dissection. Pathology revealed 1.8cm invasive adenocarcinoma with an additional separate t umor nodule in the same lobe,all margins were negative,all nodes were negative. BMP done on 07/31/2019 revealed nromal serum creatinine. 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 On 08/30/2019,she started adjuvant cisplatin/alimta Brain MRI on 10/17/2019 was negative (done because she was dizzy). Occasional Tinnitus, Audiogram ordered in September - awaiting this to be completed. She has just completed 4 cycles of chemotherapy with Cisplatin and Almta. After this last cycle she complains of increased fatigue, nausea, decreased appetite and overall weakness. Her called office yesterday and stated the symptoms started yesterday in am and hasnt been able to get anything in her to eat or drink. She was brought to the office for stat labs and IV hydration for suspected dehydration with her decreased PO intake. She received one liter of IV hydration and was feeling better and sent home. Her stat labs from 2:30 that afternoon resulted at 8pm and clled to on-call physician with a glucose of 1200. She has no history of diabetes. Her glucose was increased last office visit and when discussed with her she recently drank a large bottle of juice. She was advised to go to emergency for further evaluation. She was started on insulin drip and monitored in ICU. During this am evaluation she is doing much better and feeling better. Review of Systems A 14 point review of systems assessed and completed and all negative except HPI Past Medical History Past Medical History: Asthma, Cancer, Hypertension Additional Past Medical History / Comment(s): PMDD, LUNG CANCER-ON CHEMO History of Any Multi-Drug Resistant Organisms: None Reported Additional Past Surgical History / Comment(s): LEFT LOWER LUNG REMOVED 07/29/19. LIPOSUCTIONS Past Anesthesia/Blood Transfusion Reactions: No Reported Reaction Additional Past Anesthesia/Blood Transfusion Reaction / Comm: Never had a blood transfusion Past Psychological History: Anxiety Smoking Status: Never smoker Past Alcohol Use History: None Reported, Occasional Additional Past Alcohol Use History / Comment(s): NOT CURRENTLY USING ALCOHOL RELATED TO CURRENT CHEMO Past Drug Use History: None Reported - Past Family History Mother Family Medical History: No Reported History Medications and Allergies Home Medications Medication Instructions Recorded Confirmed Type Butalb/APAP/Caff 50-325-40Mg 1 tab PO Q4H PRN 09/12/19 11/07/19 History [Fioricet 50-325-40] Folic Acid 1 mg PO DAILY 09/12/19 11/07/19 History Losartan [Cozaar] 50 mg PO DAILY 09/12/19 11/07/19 History Omeprazole [PriLOSEC] 40 mg PO DAILY 09/12/19 11/07/19 History Ondansetron [Zofran] 4 mg PO Q8HR PRN 09/12/19 11/07/19 History LORazepam [Ativan] 0.5 mg PO Q6HR PRN 09/13/19 11/07/19 History Metoprolol Tartrate [Lopressor] 50 mg PO DAILY PRN 09/13/19 11/07/19 History Albuterol Inhaler [Ventolin Hfa 1 puff INHALATION RT-QID PRN 11/07/19 11/07/19 History Inhaler] Cetirizine HCl [Zyrtec] 10 mg PO DAILY 11/07/19 11/07/19 History Fluticasone/Salmeterol [Advair 1 puff PO DAILY PRN 11/07/19 11/07/19 History 100-50 Diskus] OLANZapine [ZyPREXA] 2.5 mg PO HS 11/07/19 11/07/19 History Allergies Allergy/AdvReac Type Severity Reaction Status Date / Time No Known Allergies Allergy Verified 11/07/19 23:25 Physical Exam Vitals: Vital Signs Temp Pulse Pulse Resp BP BP Pulse Ox 11/08/19 16:00 98.7 F 84 18 129/88 98 11/08/19 12:00 98.5 F 85 11 L 133/81 96 11/08/19 11:00 76 11 L 131/81 95 11/08/19 10:00 84 13 139/97 95 11/08/19 09:00 87 15 126/82 97 11/08/19 08:00 98 F 90 16 123/81 96 11/08/19 07:00 79 16 121/76 96 11/08/19 06:00 86 16 115/80 96 11/08/19 05:00 82 16 119/77 95 11/08/19 04:00 98.2 F 83 13 104/72 95 11/08/19 03:00 83 16 105/73 96 11/08/19 02:00 86 16 100/69 95 11/08/19 01:45 98 F 91 18 123/83 96 11/08/19 00:13 83 16 125/88 96 11/07/19 23:50 98 F 90 18 127/87 11/07/19 21:04 98.0 F 120 H 22 139/92 98 Intake and Output 11/08/19 11/08/19 11/08/19 06:59 14:59 22:59 Intake Total 3893.129 9203.603 Output Total 350 40 Balance 3584.457 8604.603 Intake: IV 1200 1300 Sodium Chloride 0.9% 1, 1200 1300 000 ml @ 150 mls/hr IV . [id number] ALESSANDRA Rx#:[id number] Intake, IV Titration 51.397 49.603 Amount Insulin Regular 100 unit 51.397 49.603 In Sodium Chloride 0.9% 100 ml @ 0.1 UNITS/KG/HR 7.788 mls/hr IV .[id number] ALESSANDRA Rx#:[id number] Oral 200 Output: Urine 350 40 Other: # Voids 1 1 Weight 77.111 kg 77.111 kg - Constitutional General appearance: average body habitus, no acute distress - EENT Very dry mouth Eyes: EOMI, PERRLA, dentition normal ENT: NA/AT, normal oropharynx - Neck Neck: normal ROM - Respiratory Respiratory: bilateral: CTA - Cardiovascular Rhythm: regular Heart sounds: normal: S1, S2 leg Peripheral Edema: bilateral: Trace - Gastrointestinal General gastrointestinal: normal bowel sounds, soft - Neurologic Neurologic: CNII-XII intact - Musculoskeletal Musculoskeletal: generalized weakness, strength equal bilaterally - Psychiatric Psychiatric: A&O x's 3, appropriate affect, intact judgment & insight Results CBC & Chem 7: 11/08/19 05:43 11/08/19 13:18 Labs: Abnormal Lab Results - Last 24 Hours (Table) 11/07/19 11/07/19 11/07/19 Range/Units 22:01 22:06 22:06 RBC (3.80-5.40) m/uL MCV 101.6 H (80.0-100.0) fL Plt Count 148 L (150-450) k/uL VBG pH (7.31-7.41) VBG HCO3 (24-28) mmol/L Sodium 129 L (137-145) mmol/L Chloride 91 L (98-107) mmol/L Carbon Dioxide 17 L (22-30) mmol/L BUN 32 H (7-17) mg/dL Glucose 1074 H* (74-99) mg/dL POC Glucose (mg/dL) >600 H (75-99) mg/dL Plasma Lactic Acid Abel (0.7-2.0) mmol/L AST 73 H (14-36) U/L ALT 128 H (4-34) U/L Alkaline Phosphatase 217 H (38-126) U/L Total Protein (6.3-8.2) g/dL Urine Glucose (UA) (Negative) Urine Ketones (Negative) Urine Blood (Negative) 11/07/19 11/07/19 11/07/19 Range/Units 22:06 22:06 22:06 RBC (3.80-5.40) m/uL MCV (80.0-100.0) fL Plt Count (150-450) k/uL VBG pH 7.30 L (7.31-7.41) VBG HCO3 20 L (24-28) mmol/L Sodium (137-145) mmol/L Chloride (98-107) mmol/L Carbon Dioxide (22-30) mmol/L BUN (7-17) mg/dL Glucose (74-99) mg/dL POC Glucose (mg/dL) (75-99) mg/dL Plasma Lactic Acid Abel 2.5 H* (0.7-2.0) mmol/L AST (14-36) U/L ALT (4-34) U/L Alkaline Phosphatase (38-126) U/L Total Protein (6.3-8.2) g/dL Urine Glucose (UA) 4+ H (Negative) Urine Ketones 1+ H (Negative) Urine Blood Moderate H (Negative) 11/07/19 11/08/19 11/08/19 Range/Units 23:11 00:10 00:31 RBC (3.80-5.40) m/uL MCV (80.0-100.0) fL Plt Count (150-450) k/uL VBG pH (7.31-7.41) VBG HCO3 (24-28) mmol/L Sodium (137-145) mmol/L Chloride (98-107) mmol/L Carbon Dioxide (22-30) mmol/L BUN (7-17) mg/dL Glucose (74-99) mg/dL POC Glucose (mg/dL) >600 H 553 H 569 H (75-99) mg/dL Plasma Lactic Acid Abel (0.7-2.0) mmol/L AST (14-36) U/L ALT (4-34) U/L Alkaline Phosphatase (38-126) U/L Total Protein (6.3-8.2) g/dL Urine Glucose (UA) (Negative) Urine Ketones (Negative) Urine Blood (Negative) 11/08/19 11/08/19 11/08/19 Range/Units 01:38 01:38 02:07 RBC (3.80-5.40) m/uL MCV (80.0-100.0) fL Plt Count (150-450) k/uL VBG pH (7.31-7.41) VBG HCO3 (24-28) mmol/L Sodium (137-145) mmol/L Chloride (98-107) mmol/L Carbon Dioxide 20 L (22-30) mmol/L BUN 28 H (7-17) mg/dL Glucose 531 H* (74-99) mg/dL POC Glucose (mg/dL) 446 H (75-99) mg/dL Plasma Lactic Acid Abel 2.6 H* (0.7-2.0) mmol/L AST (14-36) U/L ALT (4-34) U/L Alkaline Phosphatase (38-126) U/L Total Protein (6.3-8.2) g/dL Urine Glucose (UA) (Negative) Urine Ketones (Negative) Urine Blood (Negative) 11/08/19 11/08/19 11/08/19 Range/Units 03:04 04:05 05:02 RBC (3.80-5.40) m/uL MCV (80.0-100.0) fL Plt Count (150-450) k/uL VBG pH (7.31-7.41) VBG HCO3 (24-28) mmol/L Sodium (137-145) mmol/L Chloride (98-107) mmol/L Carbon Dioxide (22-30) mmol/L BUN (7-17) mg/dL Glucose (74-99) mg/dL POC Glucose (mg/dL) 418 H 371 H 338 H (75-99) mg/dL Plasma Lactic Acid Abel (0.7-2.0) mmol/L AST (14-36) U/L ALT (4-34) U/L Alkaline Phosphatase (38-126) U/L Total Protein (6.3-8.2) g/dL Urine Glucose (UA) (Negative) Urine Ketones (Negative) Urine Blood (Negative) 11/08/19 11/08/19 11/08/19 Range/Units 05:43 05:43 05:43 RBC 3.54 L (3.80-5.40) m/uL MCV (80.0-100.0) fL Plt Count 115 L (150-450) k/uL VBG pH (7.31-7.41) VBG HCO3 (24-28) mmol/L Sodium (137-145) mmol/L Chloride 108 H (98-107) mmol/L Carbon Dioxide (22-30) mmol/L BUN 23 H (7-17) mg/dL Glucose 297 H (74-99) mg/dL POC Glucose (mg/dL) (75-99) mg/dL Plasma Lactic Acid Abel 2.3 H* (0.7-2.0) mmol/L AST (14-36) U/L ALT (4-34) U/L Alkaline Phosphatase (38-126) U/L Total Protein (6.3-8.2) g/dL Urine Glucose (UA) (Negative) Urine Ketones (Negative) Urine Blood (Negative) 11/08/19 11/08/19 11/08/19 Range/Units 06:01 07:17 08:01 RBC (3.80-5.40) m/uL MCV (80.0-100.0) fL Plt Count (150-450) k/uL VBG pH (7.31-7.41) VBG HCO3 (24-28) mmol/L Sodium (137-145) mmol/L Chloride (98-107) mmol/L Carbon Dioxide (22-30) mmol/L BUN (7-17) mg/dL Glucose (74-99) mg/dL POC Glucose (mg/dL) 306 H 219 H 208 H (75-99) mg/dL Plasma Lactic Acid Abel (0.7-2.0) mmol/L AST (14-36) U/L ALT (4-34) U/L Alkaline Phosphatase (38-126) U/L Total Protein (6.3-8.2) g/dL Urine Glucose (UA) (Negative) Urine Ketones (Negative) Urine Blood (Negative) 11/08/19 11/08/19 11/08/19 Range/Units 12:24 13:18 16:53 RBC (3.80-5.40) m/uL MCV (80.0-100.0) fL Plt Count (150-450) k/uL VBG pH (7.31-7.41) VBG HCO3 (24-28) mmol/L Sodium 135 L (137-145) mmol/L Chloride (98-107) mmol/L Carbon Dioxide (22-30) mmol/L BUN 24 H (7-17) mg/dL Glucose 439 H (74-99) mg/dL POC Glucose (mg/dL) 406 H 453 H (75-99) mg/dL Plasma Lactic Acid Abel (0.7-2.0) mmol/L AST 77 H (14-36) U/L ALT 104 H (4-34) U/L Alkaline Phosphatase 130 H (38-126) U/L Total Protein 6.0 L (6.3-8.2) g/dL Urine Glucose (UA) (Negative) Urine Ketones (Negative) Urine Blood (Negative) Chest x-ray: report reviewed Assessment and Plan (1) DKA (diabetic ketoacidoses) Current Visit: Yes Status: Acute Code(s): E11.10 - TYPE 2 DIABETES MELLITUS WITH KETOACIDOSIS WITHOUT COMA SNOMED Code(s): 548074791 (2) Diabetes mellitus, new onset Current Visit: Yes Status: Acute Code(s): E11.9 - TYPE 2 DIABETES MELLITUS WITHOUT COMPLICATIONS SNOMED Code(s): 310919927 (3) Hyperglycemia Current Visit: Yes Status: Acute Code(s): R73.9 - HYPERGLYCEMIA, UNSPECIFIED SNOMED Code(s): 41713560 (4) Lung cancer Current Visit: No Status: Acute Code(s): C34.90 - MALIGNANT NEOPLASM OF UNSP PART OF UNSP BRONCHUS OR LUNG SNOMED Code(s): 695432889 Plan: Assessment and Recommendations: 1. Adenocarcinoma of the Lung - EGFR POsitive - LIFE[employer] Non-smoker - Status POst Cycle 4 of Cisplatin and Almta - Will undergo re-staging and likely begin on Anti-EGFR po medication for control and treatment 2. DKA: - Improving - Will plan to follow-up with Endocrinology as an outpatient 3. Increased LFTs: - ?secondary to hepatic steatosis - Ultrasound of abdomen ordered Thank you for allowing us to participate in the care of this patient will follow along with you
[2019-11-08] MEDS: ALBUTEROL NEBULIZED 2.5 MG/3 ML INHALATION PRN (20:14)
[2019-11-08 20:20] LABS: Glucose,Whole Blood 357 mg/dL (75-99)
[2019-11-08] MEDS: OLANZapine 2.5 MG TAB PO SCH (20:21)
--- NOTE | 2019-11-08 21:39 | P.HPIM ---
History of Present Illness H&P Date: 11/08/19 Chief Complaint: Polyuria and Polydipsia Ms. 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 Patient states that she was started on chemotherapy about 6 weeks ago and that she was receiving steroids with her chemotherapy. Patient does not have history of diabetes but she did have gestational diabetes. Patient denied having any fevers chills or rigors, no cough or difficulty in breathing, no palpitations or chest pain, no abdominal pain nausea vomiting or diarrhea, no dysuria or hematuria. Patient went to 1 of her IV infusion centers, which she was ordered blood work and it was found to be very high and she was directed to go to the ER. In the emergency patient had labs done showing initial blood sugar of 1074, sodium of 129, with an anion gap of 21. Her urine was positive for 4+ glucose 1+ ketones. So she was admitted with a diagnosis of DKA. Patient was started on IV insulin, given IV fluids as per DKA protocol. Currently patient is off of insulin drip, denies having polyuria or polydipsia. She only complains of feeling extremely fatigued and weak. She denies having any focal weakness. Review of Systems REVIEW OF SYSTEMS: CONSTITUTIONAL: No fever, no malaise, no fatigue. HEENT: No recent visual problems or hearing problems. Denied any sore throat. CARDIOVASCULAR: No chest pain, palpitations, orthopnea or PND. No lower swelling PULMONARY: No shortness of breath, no cough, no hemoptysis. GASTROINTESTINAL: No diarrhea, no nausea,no abdominal pain. NEUROLOGICAL: No headaches, no weakness, no numbness. HEMATOLOGICAL: Denies any bleeding or petechiae. GENITOURINARY: Denies any burning micturition, frequency, or urgency. Polyuria MUSCULOSKELETAL/RHEUMATOLOGICAL: No joint swelling or body aches ENDOCRINE: + ve for polyuria or polydipsia. The rest of the 13-point review of systems is negative. Past Medical History Past Medical History: Asthma, Cancer, Hypertension Additional Past Medical History / Comment(s): PMDD, LUNG CANCER-ON CHEMO History of Any Multi-Drug Resistant Organisms: None Reported Additional Past Surgical History / Comment(s): LEFT LOWER LUNG REMOVED 5/1/20. LIPOSUCTIONS Past Anesthesia/Blood Transfusion Reactions: No Reported Reaction Additional Past Anesthesia/Blood Transfusion Reaction / Comment(s): Never had a blood transfusion Past Psychological History: Anxiety Smoking Status: Never smoker Past Alcohol Use History: None Reported, Occasional Additional Past Alcohol Use History / Comment(s): NOT CURRENTLY USING ALCOHOL RELATED TO CURRENT CHEMO Past Drug Use History: None Reported - Past Family History Mother Family Medical History: No Reported History Medications and Allergies Home Medications Medication Instructions Recorded Confirmed Type Butalb/APAP/Caff 50-325-40Mg 1 tab PO Q4H PRN 09/12/19 11/07/19 History [Fioricet 50-325-40] Folic Acid 1 mg PO DAILY 09/12/19 11/07/19 History Losartan [Cozaar] 50 mg PO DAILY 09/12/19 11/07/19 History Omeprazole [PriLOSEC] 40 mg PO DAILY 09/12/19 11/07/19 History Ondansetron [Zofran] 4 mg PO Q8HR PRN 09/12/19 11/07/19 History LORazepam [Ativan] 0.5 mg PO Q6HR PRN 09/13/19 11/07/19 History Metoprolol Tartrate [Lopressor] 50 mg PO DAILY PRN 09/13/19 11/07/19 History Albuterol Inhaler [Ventolin Hfa 1 puff INHALATION RT-QID PRN 11/07/19 11/07/19 History Inhaler] Cetirizine HCl [Zyrtec] 10 mg PO DAILY 11/07/19 11/07/19 History Fluticasone/Salmeterol [Advair 1 puff PO DAILY PRN 11/07/19 11/07/19 History 100-50 Diskus] OLANZapine [ZyPREXA] 2.5 mg PO HS 11/07/19 11/07/19 History Allergies Allergy/AdvReac Type Severity Reaction Status Date / Time No Known Allergies Allergy Verified 11/07/19 23:25 Physical Exam Vitals: Vital Signs Temp Pulse Pulse Resp BP BP Pulse Ox 11/08/19 12:00 98.5 F 85 11 L 133/81 96 11/08/19 11:00 76 11 L 131/81 95 11/08/19 10:00 84 13 139/97 95 11/08/19 09:00 87 15 126/82 97 11/08/19 08:00 98 F 90 16 123/81 96 11/08/19 07:00 79 16 121/76 96 11/08/19 06:00 86 16 115/80 96 11/08/19 05:00 82 16 119/77 95 11/08/19 04:00 98.2 F 83 13 104/72 95 11/08/19 03:00 83 16 105/73 96 11/08/19 02:00 86 16 100/69 95 11/08/19 01:45 98 F 91 18 123/83 96 11/08/19 00:13 83 16 125/88 96 11/07/19 23:50 98 F 90 18 127/87 11/07/19 21:04 98.0 F 120 H 22 139/92 98 Intake and Output 11/08/19 11/08/19 11/08/19 06:59 14:59 22:59 Intake Total 0830.089 6498.603 Output Total 350 40 Balance 6129.854 2600.603 Intake: IV 1200 1300 Sodium Chloride 0.9% 1, 1200 1300 000 ml @ 150 mls/hr IV . Q6H40M ALESSANDRA Rx#:[id number] Intake, IV Titration 51.397 49.603 Amount Insulin Regular 100 unit 51.397 49.603 In Sodium Chloride 0.9% 100 ml @ 0.1 UNITS/KG/HR 7.788 mls/hr IV .[id number] ALESSANDRA Rx#:[id number] Oral 200 Output: Urine 350 40 Other: # Voids 1 1 Weight 77.111 kg 77.111 kg PHYSICAL EXAMINATION: GENERAL: appears to be in no acute distress. HEENT: Pupils are round and equally reacting to light. EOMI. mild scleral icterus. No conjunctival pallor. Normocephalic, atraumatic. No pharyngeal erythema. No thyromegaly. CARDIOVASCULAR: S1 and S2 heard. No additional sounds. PULMONARY: Bilateral breath sounds are positive. No wheeze or crackles. ABDOMEN: Soft, nontender, nondistended, normoactive bowel sounds. No palpable organomegaly. MUSCULOSKELETAL: No joint swelling or deformity. EXTREMITIES: No cyanosis, clubbing, or pedal edema. NEUROLOGICAL: Alert awake oriented 3, Gross neurological examination did not reveal any focal deficits. SKIN: No rash Results CBC & Chem 7: 11/08/19 05:43 11/08/19 13:18 Labs: Abnormal Lab Results - Last 24 Hours (Table) 11/07/19 11/07/19 11/07/19 Range/Units 22:01 22:06 22:06 RBC (3.80-5.40) m/uL MCV 101.6 H (80.0-100.0) fL Plt Count 148 L (150-450) k/uL VBG pH (7.31-7.41) VBG HCO3 (24-28) mmol/L Sodium 129 L (137-145) mmol/L Chloride 91 L (98-107) mmol/L Carbon Dioxide 17 L (22-30) mmol/L BUN 32 H (7-17) mg/dL Glucose 1074 H* (74-99) mg/dL POC Glucose (mg/dL) >600 H (75-99) mg/dL Plasma Lactic Acid Abel (0.7-2.0) mmol/L AST 73 H (14-36) U/L ALT 128 H (4-34) U/L Alkaline Phosphatase 217 H (38-126) U/L Total Protein (6.3-8.2) g/dL Urine Glucose (UA) (Negative) Urine Ketones (Negative) Urine Blood (Negative) 11/07/19 11/07/19 11/07/19 Range/Units 22:06 22:06 22:06 RBC (3.80-5.40) m/uL MCV (80.0-100.0) fL Plt Count (150-450) k/uL VBG pH 7.30 L (7.31-7.41) VBG HCO3 20 L (24-28) mmol/L Sodium (137-145) mmol/L Chloride (98-107) mmol/L Carbon Dioxide (22-30) mmol/L BUN (7-17) mg/dL Glucose (74-99) mg/dL POC Glucose (mg/dL) (75-99) mg/dL Plasma Lactic Acid Abel 2.5 H* (0.7-2.0) mmol/L AST (14-36) U/L ALT (4-34) U/L Alkaline Phosphatase (38-126) U/L Total Protein (6.3-8.2) g/dL Urine Glucose (UA) 4+ H (Negative) Urine Ketones 1+ H (Negative) Urine Blood Moderate H (Negative) 11/07/19 11/08/19 11/08/19 Range/Units 23:11 00:10 00:31 RBC (3.80-5.40) m/uL MCV (80.0-100.0) fL Plt Count (150-450) k/uL VBG pH (7.31-7.41) VBG HCO3 (24-28) mmol/L Sodium (137-145) mmol/L Chloride (98-107) mmol/L Carbon Dioxide (22-30) mmol/L BUN (7-17) mg/dL Glucose (74-99) mg/dL POC Glucose (mg/dL) >600 H 553 H 569 H (75-99) mg/dL Plasma Lactic Acid Abel (0.7-2.0) mmol/L AST (14-36) U/L ALT (4-34) U/L Alkaline Phosphatase (38-126) U/L Total Protein (6.3-8.2) g/dL Urine Glucose (UA) (Negative) Urine Ketones (Negative) Urine Blood (Negative) 11/08/19 11/08/19 11/08/19 Range/Units 01:38 01:38 02:07 RBC (3.80-5.40) m/uL MCV (80.0-100.0) fL Plt Count (150-450) k/uL VBG pH (7.31-7.41) VBG HCO3 (24-28) mmol/L Sodium (137-145) mmol/L Chloride (98-107) mmol/L Carbon Dioxide 20 L (22-30) mmol/L BUN 28 H (7-17) mg/dL Glucose 531 H* (74-99) mg/dL POC Glucose (mg/dL) 446 H (75-99) mg/dL Plasma Lactic Acid Abel 2.6 H* (0.7-2.0) mmol/L AST (14-36) U/L ALT (4-34) U/L Alkaline Phosphatase (38-126) U/L Total Protein (6.3-8.2) g/dL Urine Glucose (UA) (Negative) Urine Ketones (Negative) Urine Blood (Negative) 11/08/19 11/08/19 11/08/19 Range/Units 03:04 04:05 05:02 RBC (3.80-5.40) m/uL MCV (80.0-100.0) fL Plt Count (150-450) k/uL VBG pH (7.31-7.41) VBG HCO3 (24-28) mmol/L Sodium (137-145) mmol/L Chloride (98-107) mmol/L Carbon Dioxide (22-30) mmol/L BUN (7-17) mg/dL Glucose (74-99) mg/dL POC Glucose (mg/dL) 418 H 371 H 338 H (75-99) mg/dL Plasma Lactic Acid Abel (0.7-2.0) mmol/L AST (14-36) U/L ALT (4-34) U/L Alkaline Phosphatase (38-126) U/L Total Protein (6.3-8.2) g/dL Urine Glucose (UA) (Negative) Urine Ketones (Negative) Urine Blood (Negative) 11/08/19 11/08/19 11/08/19 Range/Units 05:43 05:43 05:43 RBC 3.54 L (3.80-5.40) m/uL MCV (80.0-100.0) fL Plt Count 115 L (150-450) k/uL VBG pH (7.31-7.41) VBG HCO3 (24-28) mmol/L Sodium (137-145) mmol/L Chloride 108 H (98-107) mmol/L Carbon Dioxide (22-30) mmol/L BUN 23 H (7-17) mg/dL Glucose 297 H (74-99) mg/dL POC Glucose (mg/dL) (75-99) mg/dL Plasma Lactic Acid Abel 2.3 H* (0.7-2.0) mmol/L AST (14-36) U/L ALT (4-34) U/L Alkaline Phosphatase (38-126) U/L Total Protein (6.3-8.2) g/dL Urine Glucose (UA) (Negative) Urine Ketones (Negative) Urine Blood (Negative) 11/08/19 11/08/19 11/08/19 Range/Units 06:01 07:17 08:01 RBC (3.80-5.40) m/uL MCV (80.0-100.0) fL Plt Count (150-450) k/uL VBG pH (7.31-7.41) VBG HCO3 (24-28) mmol/L Sodium (137-145) mmol/L Chloride (98-107) mmol/L Carbon Dioxide (22-30) mmol/L BUN (7-17) mg/dL Glucose (74-99) mg/dL POC Glucose (mg/dL) 306 H 219 H 208 H (75-99) mg/dL Plasma Lactic Acid Abel (0.7-2.0) mmol/L AST (14-36) U/L ALT (4-34) U/L Alkaline Phosphatase (38-126) U/L Total Protein (6.3-8.2) g/dL Urine Glucose (UA) (Negative) Urine Ketones (Negative) Urine Blood (Negative) 11/08/19 11/08/19 Range/Units 12:24 13:18 RBC (3.80-5.40) m/uL MCV (80.0-100.0) fL Plt Count (150-450) k/uL VBG pH (7.31-7.41) VBG HCO3 (24-28) mmol/L Sodium 135 L (137-145) mmol/L Chloride (98-107) mmol/L Carbon Dioxide (22-30) mmol/L BUN 24 H (7-17) mg/dL Glucose 439 H (74-99) mg/dL POC Glucose (mg/dL) 406 H (75-99) mg/dL Plasma Lactic Acid Abel (0.7-2.0) mmol/L AST 77 H (14-36) U/L ALT 104 H (4-34) U/L Alkaline Phosphatase 130 H (38-126) U/L Total Protein 6.0 L (6.3-8.2) g/dL Urine Glucose (UA) (Negative) Urine Ketones (Negative) Urine Blood (Negative) Thrombosis Risk Factor Assmnt - Choose All That Apply Each Factor Represents 1 point: Age 41-60 years, Serious lung disease incl. pneumonia (< 1month) Each Risk Factor Represents 2 Points: Malignancy Thrombosis Risk Factor Assessment Total Risk Factor Score: 4 Thrombosis Risk Factor Assessment Level: Moderate Risk Assessment and Plan Assessment: ASSESSMENT DKA Pseudohyponatremia ? New onset diabetes Adenocarcinoma of the left lung status post lobectomy Hypertension Fibromyalgia Asthma PLAN: Patient has been started on IV insulin, given IV fluids and her gap closed overnight. She is currently off of insulin drip. Hemoglobin A1c pending. It could be new onset diabetes mellitus due to recent use of steroids. Patient has been restarted on her home medications. The treatment plan was discussed in detail with patient at bedside. Further recommendations to follow depending on the progress of the patient.
[2019-11-09] MEDS: SODIUM CHLORIDE 0.9% 1,000 ML IV SCH ×3 (03:23→18:27)
[2019-11-09] MEDS ORDERED: INSULIN DETEMIR (LEVEMIR) 100 UNIT/ML SYR SQ SCH (07:00)
[2019-11-09 07:13] LABS: Glucose,Whole Blood 254 mg/dL (75-99)
[2019-11-09] MEDS: LORATADINE 10 MG TAB PO SCH (08:11)
[2019-11-09] MEDS: PANTOPRAZOLE 40 MG TABLET PO SCH ×2 (08:11→21:52)
[2019-11-09] MEDS: INSULIN ASPART (NovoLOG) 100 UNIT/ML VIAL SQ SCH ×7 (08:12→20:32)
[2019-11-09] MEDS: LOSARTAN 50 MG TAB PO SCH (08:12)
[2019-11-09] MEDS: FOLIC ACID 1 MG TAB PO SCH (08:12)
[2019-11-09] MEDS: INSULIN DETEMIR (LEVEMIR) 100 UNIT/ML SYR SQ SCH (08:12)
[2019-11-09 09:03] LABS: Basophils % (A) 0 %; Eosinophils % (A) 1 %; HGB 10.3 gm/dL (11.4-16.0); Lymphocytes # (A) 4.2 k/uL (1.0-4.8); Lymphocytes % (A) 47 %; MCH 33.3 pg (25.0-35.0); MCHC 34.2 g/dL (31.0-37.0); MCV 97.4 fL (80.0-100.0); Mean Platelet Volume 7.5; Monocytes # (A) 0.3 k/uL (0-1.0); Monocytes % (A) 3 %; Neutrophils # (A) 4.2 k/uL (1.3-7.7); Neutrophils % (A) 47 %; RBC 3.08 m/uL (3.80-5.40); RDW 14.9 % (11.5-15.5); WBC 8.9 k/uL (3.8-10.6)
[2019-11-09 09:13] LABS: ALT 86 U/L (4-34); AST 55 U/L (14-36); African American GFR (CKD) >90 (>60 ml/min/1.73 sqM); Albumin 3.1 g/dL (3.5-5.0); Alkaline Phosphatase 106 U/L (38-126); Anion Gap 4 mmol/L; Blood Urea Nitrogen 18 mg/dL (7-17); Calcium 7.9 mg/dL (8.4-10.2); Carbon Dioxide 26 mmol/L (22-30); Chloride 106 mmol/L (98-107); Glucose 226 mg/dL (74-99); Non-African American GFR(CKD) >90 (>60 ml/min/1.73 sqM); Potassium 3.7 mmol/L (3.5-5.1); Sodium 136 mmol/L (137-145); Total Bilirubin 0.6 mg/dL (0.2-1.3); Total Protein 5.3 g/dL (6.3-8.2)
--- NOTE | 2019-11-09 10:43 | US ---
"EXAMINATION TYPE: US abdomen complete DATE OF EXAM: 11/09/2019 COMPARISON: NONE CLINICAL HISTORY: increased LFTs . History of lung cancer EXAM MEASUREMENTS: Liver Length: 18.8 cm Gallbladder Wall: 0.2 cm CBD: 0.4 cm Spleen: 10.7 cm Right Kidney: 10.4 x 4.7 x 5.5 cm Left Kidney: 10.7 x 6.2 x 3.8 cm Pancreas: Normal where visualized. Body and tail obscured due to overlying bowel gas. Liver: Enlarged, coarsened echotexture, and hyperattenuating. There is poor penetration of the poste rior right and left lobes. Hypoechoic area visualized measuring 2.9 x 2.1 x 3.4 cm near the hilum wit h no internal color Doppler flow. Gallbladder: There is cholelithiasis. There is no gallbladder wall thickening or pericholecystic flu id. Explosives Detonator reports a negative sonographic Durbin sign. CBD: wnl Spleen: wnl Right Kidney: Stone visualized measuring 0.9 cm. No hydronephrosis Left Kidney: Stone visualized measuring 0.7 cm. No hydronephrosis Upper IVC: Normal where visualized. Abd Aorta: Normal where visualized. IMPRESSION: 1. Hypoechoic liver lesion 2.9 x 2.1 x 3.4 cm near the hilum. Findings may represent true mass versus area of focal fatty sparing within background of significantly fatty liver. Follow-up MRI examinatio n of the liver is recommended. 2. Fatty liver with coarsened echotexture. There is poor visualization of the posterior right and lef t liver lobes. 3. Nonobstructing bilateral renal calculi. No hydronephrosis. A Yellow level critical message alert has been initiated for Paul More MD via the [employer] 0 | Critical Results System on 11/09/2019 10:40 AM. This message alert has been sent to Paul More MD via the preferences provided by the clinician for the receipt of Radiology Critical Findings. [facility] Limage ID [id number]."
[2019-11-09 11:02] LABS: Glucose,Whole Blood 189 mg/dL (75-99)
[2019-11-09 11:27] LABS: Platelet Count 74 k/uL (150-450)
[2019-11-09 11:28] LABS: Anisocytosis (M) Present
[2019-11-09] MEDS: LORazepam 0.5 MG TAB PO PRN ×2 (13:03→19:11)
[2019-11-09] MEDS: IOPAMIDOL CONTRAST (ORAL USE) VIAL PO PRN ×2 (13:40→14:28)
--- NOTE | 2019-11-09 15:59 | CT ---
EXAMINATION TYPE: CT ChestAbdPelvis w con DATE OF EXAM: 11/09/2019 COMPARISON: HISTORY: liver and lung ca CT DLP: 1059.2 mGycm Automated exposure control for dose reduction was used. CONTRAST: CT scan of the chest, abdomen and pelvis is performed with Oral Contrast and with IV Contrast, patien t injected with 100 mL of Isovue 300. FINDINGS: Port is present within the right pectoral region. There is a right jugular central venous a pproach, distal tip the catheter is near the cavoatrial junction. LUNGS: There is volume loss in the left hemithorax, some probable minimal scarring at the left lung b ase. There is no pleural effusion or pneumothorax seen. The tracheobronchial tree is patent. MEDIASTINUM: There are no greater than 1 cm hilar or mediastinal lymph nodes. No pericardial effusi on is seen. AORTA: No significant abnormality is seen. OTHER: No additional significant abnormality is seen. LIVER/GB: Within the liver left lobe adjacent to the salvador there is a focus of increased density valorie uring 3.5 x 2.7 x 4 cm. Low-attenuation within the liver may be due to hepatic steatosis, liver is en larged, gallbladder is remarkable for some luminal stones PANCREAS: No significant abnormality is seen. SPLEEN: No significant abnormality is seen. ADRENALS: No significant abnormality is seen. KIDNEYS: Right kidney shows an associated calcification anteriorly at the midpole measuring approxima tely 18 mm in greatest dimension which is nonobstructive. Nonobstructive punctate 3 mm calcification present at the lower pole the left kidney. There is a retroaortic left renal vein. REPRODUCTIVE ORGANS: IUD is in place. Dilated right ovarian vein is present. There may be underlying thrombosis within the right ovarian vein. Some low-attenuation present within the vein on delayed j luis ges.. BOWEL: No significant abnormality is seen. FREE AIR: No Free Air visible. ASCITES: None seen. RETROPERITONEAL ADENOPATHY: There is a node immediately adjacent to the ovarian vein on the right wi thout enlargement. LYMPH NODES: No greater than 1 cm abdominal or pelvic lymph nodes are appreciated. URINARY BLADDER: No significant abnormality is seen. PELVIC ADENOPATHY: None visualized. OSSEOUS STRUCTURES: Degenerative disc changes are present in the lower lumbar spine, there is facet arthropathy change, arthritis also suspected within the hips. IMPRESSION: Indeterminate density change within the left lobe of the liver could be related to focal fatty sparing, MRI of the liver could be performed for better evaluation. Cholelithiasis. Postop ashley ges. Probable hepatic steatosis, hepatomegaly. Nephrolithiasis. Dilated right ovarian vein, difficult to exclude ovarian vein thrombosis, MRI may be of benefit as indicated, additional findings above.
[2019-11-09 17:00] LABS: Glucose,Whole Blood 261 mg/dL (75-99)
[2019-11-09 20:08] LABS: Glucose,Whole Blood 261 mg/dL (75-99)
[2019-11-09] MEDS: BENZOCAINE/MENTHOL LOZENG 1 EACH LOZENGE MUCOUS MEM PRN (20:34)
[2019-11-09] MEDS: OLANZapine 2.5 MG TAB PO SCH (20:49)
[2019-11-09] MEDS ORDERED: ACET/COD 120MG/12MG LIQ 5ML CUP PO PRN (20:59)
--- NOTE | 2019-11-09 21:05 | P.PN ---
Subjective Progress Note Date: 11/09/19 Principal diagnosis: DKA She is feeling better today although still with complaints of worsening forgetfullness, vision changes in bilateral eyes, and headaches and sore throat. No clinical abnormalities on exam with the exception of forgetfullness and the "blank, frustrated" look she has been giving. She did have MRI of the brain recently at [facility] and no abnormalities identified. This was performed on 10/17/19. If symptoms persist after we have acheived control of hypergkycemia will re-evaluate with MRI. CT does not show recurrence of malignancy, comparision of CT abdomen at diagnosis last year did re-reveal hepatomegaly and hepatic steatosis, although area of increased density which appears measureable is more prominently reported than prior exams. Will discuss further with radiaology if further work-up is needed. Objective - Vital Signs Vital signs: Vital Signs Temp 98.4 F 11/09/19 20:04 Pulse 88 11/09/19 20:04 Resp 18 11/09/19 20:04 BP 133/84 11/09/19 20:04 Pulse Ox 99 11/09/19 20:04 Intake & Output 11/09/19 11/09/19 11/10/19 06:59 18:59 06:59 Output Total 40 Balance -40 Weight 76.1 kg Output: Urine 40 Other: # Voids 0 2 0 - Exam Constitutional General appearance: average body habitus, no acute distress - EENT Very dry mouth Eyes: EOMI, PERRLA, dentition normal ENT: NA/AT, normal oropharynx - Neck Neck: normal ROM - Respiratory Respiratory: bilateral: CTA - Cardiovascular Rhythm: regular Heart sounds: normal: S1, S2 leg Peripheral Edema: bilateral: Trace - Gastrointestinal General gastrointestinal: normal bowel sounds, soft hepatomegaly - Neurologic Neurologic: CNII-XII intact - Musculoskeletal Musculoskeletal: generalized weakness, strength equal bilaterally - Psychiatric Psychiatric: A&O x's 3, appropriate affect, intact judgment & insight - Labs CBC & Chem 7: 11/09/19 07:56 11/09/19 07:56 Labs: Abnormal Lab Results - Last 24 Hours (Table) 11/08/19 11/09/19 11/09/19 Range/Units 05:43 07:12 07:56 RBC 3.08 L (3.80-5.40) m/uL Hgb 10.3 L (11.4-16.0) gm/dL Hct 30.0 L (34.0-46.0) % Plt Count 74 L (150-450) k/uL Sodium (137-145) mmol/L BUN (7-17) mg/dL Glucose (74-99) mg/dL POC Glucose (mg/dL) 254 H (75-99) mg/dL Hemoglobin A1c 11.0 H (4.0-6.0) % Calcium (8.4-10.2) mg/dL AST (14-36) U/L ALT (4-34) U/L Total Protein (6.3-8.2) g/dL Albumin (3.5-5.0) g/dL 11/09/19 11/09/19 11/09/19 Range/Units 07:56 10:50 16:59 RBC (3.80-5.40) m/uL Hgb (11.4-16.0) gm/dL Hct (34.0-46.0) % Plt Count (150-450) k/uL Sodium 136 L (137-145) mmol/L BUN 18 H (7-17) mg/dL Glucose 226 H (74-99) mg/dL POC Glucose (mg/dL) 189 H 261 H (75-99) mg/dL Hemoglobin A1c (4.0-6.0) % Calcium 7.9 L (8.4-10.2) mg/dL AST 55 H (14-36) U/L ALT 86 H (4-34) U/L Total Protein 5.3 L (6.3-8.2) g/dL Albumin 3.1 L (3.5-5.0) g/dL 11/09/19 Range/Units 20:05 RBC (3.80-5.40) m/uL Hgb (11.4-16.0) gm/dL Hct (34.0-46.0) % Plt Count (150-450) k/uL Sodium (137-145) mmol/L BUN (7-17) mg/dL Glucose (74-99) mg/dL POC Glucose (mg/dL) 261 H (75-99) mg/dL Hemoglobin A1c (4.0-6.0) % Calcium (8.4-10.2) mg/dL AST (14-36) U/L ALT (4-34) U/L Total Protein (6.3-8.2) g/dL Albumin (3.5-5.0) g/dL Microbiology - Last 24 Hours (Table) 11/08/19 13:18 Blood Culture - Preliminary Blood No Growth after 24 hours Assessment and Plan (1) DKA (diabetic ketoacidoses) Current Visit: Yes Status: Acute Code(s): E11.10 - TYPE 2 DIABETES MELLITUS WITH KETOACIDOSIS WITHOUT COMA SNOMED Code(s): 269263997 (2) Diabetes mellitus, new onset Current Visit: Yes Status: Acute Code(s): E11.9 - TYPE 2 DIABETES MELLITUS WITHOUT COMPLICATIONS SNOMED Code(s): 777234612 (3) Hyperglycemia Current Visit: Yes Status: Acute Code(s): R73.9 - HYPERGLYCEMIA, UNSPECIFIED SNOMED Code(s): 29618625 (4) Lung cancer Current Visit: No Status: Acute Code(s): C34.90 - MALIGNANT NEOPLASM OF UNSP PART OF UNSP BRONCHUS OR LUNG SNOMED Code(s): 984191752 Plan: Assessment and Recommendations: 1. Adenocarcinoma of the Lung - EGFR POsitive - [facility] Non-smoker - Status POst Cycle 4 of Cisplatin and [place] - CT scans reviewed and no 2. DKA: - Improving - Will plan to follow-up with Endocrinology as an outpatient 3. Increased LFTs: - ?secondary to hepatic steatosis - Ultrasound of abdomen revealed increased density in liver - CT scan reviewed and will discuss further with radiologist to see if changes are seen from prior imaging. 4. Sore Throat and extreme dry mouth: - Cephacol lozenges 5. Dry Cough - New 6. Headaches and blurred vision: - Recent MRI negative for metastatic disease, this maybe secondary to DKA, Optho referral to further evaluate. PLan: - Labs in Am B12, CBC, CMP
[2019-11-09] MEDS: MAG HYDROX/AL HYDROX/SIMETH 30 ML, LIDOCAINE VISCOUS 30 ML, diphenhydrAMINE ELIXIR 75 M... PO SCH ×4 (23:57)
[2019-11-10] MEDS: BENZOCAINE/MENTHOL LOZENG 1 EACH LOZENGE MUCOUS MEM PRN (00:04)
--- NOTE | 2019-11-10 00:49 | P.PN ---
Subjective Progress Note Date: 11/09/19 Principal diagnosis: DKA Ms. 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 Patient states that she was started on chemotherapy about 6 weeks ago and that she was receiving steroids with her chemotherapy. Patient does not have history of diabetes but she did have gestational diabetes. Patient denied having any fevers chills or rigors, no cough or difficulty in breathing, no palpitations or chest pain, no abdominal pain nausea vomiting or diarrhea, no dysuria or hematuria. Patient went to 1 of her IV infusion centers, which she was ordered blood work and it was found to be very high and she was directed to go to the ER. In the emergency patient had labs done showing initial blood sugar of 1074, sodium of 129, with an anion gap of 21. Her urine was positive for 4+ glucose 1+ ketones. So she was admitted with a diagnosis of DKA. Patient was started on IV insulin, given IV fluids as per DKA protocol. Currently patient is off of insulin drip, denies having polyuria or polydipsia. She only complains of feeling extremely fatigued and weak. She denies having any focal weakness. On 11/09/2019- Patient has been transferred out of the ICU. Patient had an ultrasound of the abdomen done this morning and it showed hypoechoic liver lesions 2.9 x 2.1 x 3.4 cm near the hilum. Patient states that her appetite is improved and she is not nauseous anymore. Patient denies having any chest pain or palpitations. No cough or difficulty in breathing. No abdominal pain, no dysuria or hematuria. On reviewing the vitals she has been afebrile and saturating at 97% on room air reviewing the labs white count 8.9 hemoglobin 10.3, electrolytes within normal limits anion gap is closing it is 4. Blood sugars has been have been running in 200s to 250s. On 11/10/2019-patient is sitting up in the bed appears to be no acute distress. She just had the MRI of her abdomen. Patient denies having any active complaints. Overnight no acute issues reported by nursing staff. Patient's blood sugars have been running within normal limits. She is getting 20 units of Lantus at night and 6 to 8 units of sliding scale. Patient's vitals within normal limits afebrile for the past 24 hours. Reviewing the labs hemoglobin stable at 11.2, platelets low at 71 electrolytes within normal limits. Active Medications Acetaminophen/Butalbital/Caffeine (Fioricet 50-325-40) 1 each PO Q4H PRN PRN Reason: HEADACHES Last Admin: 11/09/19 18:03 Dose: 1 each Documented by: Acetaminophen/Codeine Phosphate (Tylenol/Codeine Liquid Cup) 10 ml PO Q6HR PRN PRN Reason: Pain Albuterol Sulfate (Ventolin Nebulized) 2.5 mg INHALATION RT-QID PRN PRN Reason: Shortness Of Breath Last Admin: 11/10/19 15:43 Dose: 2.5 mg Documented by: Benzocaine/Menthol (Cepacol Lozenge) 1 each MUCOUS MEM Q4HR PRN PRN Reason: Dry Nasal Passages Last Admin: 11/10/19 00:04 Dose: 1 each Documented by: Al Hydroxide/Mg Hydroxide 30 ml/ Lidocaine HCl 30 ml/Diphenhydramine HCl 75 mg/Nystatin 3,000,000 unit 0 ml PO TID [facility] Last Admin: 11/10/19 20:29 Dose: 5 ml Documented by: Folic Acid (Folic Acid) 1 mg PO DAILY [facility] Last Admin: 11/10/19 08:05 Dose: 1 mg Documented by: Sodium Chloride (Saline 0.9%) 1,000 mls @ 150 mls/hr IV .Q6H40M [facility] Last Admin: 11/10/19 22:17 Dose: 150 mls/hr Documented by: Insulin Aspart (Novolog) 0 unit SQ ACHS [facility]; Protocol Last Admin: 11/10/19 21:09 Dose: 5 unit Documented by: Insulin Aspart (Novolog) 5 unit SQ AC-TID [facility] Last Admin: 11/10/19 17:36 Dose: 5 unit Documented by: Insulin Detemir (Levemir) 20 unit SQ DAILY@0700 [facility] Last Admin: 11/10/19 08:04 Dose: 20 unit Documented by: Loratadine (Claritin) 10 mg PO DAILY [facility] Last Admin: 11/10/19 08:05 Dose: 10 mg Documented by: Lorazepam (Ativan) 0.5 mg PO Q6HR PRN PRN Reason: Anxiety Last Admin: 11/10/19 20:28 Dose: 0.5 mg Documented by: Losartan Potassium (Cozaar) 50 mg PO DAILY [facility] Last Admin: 11/10/19 08:05 Dose: 50 mg Documented by: Metoprolol Tartrate (Lopressor) 50 mg PO DAILY PRN PRN Reason: Blood Pressure - High Olanzapine (Zyprexa) 2.5 mg PO HS [facility] Last Admin: 11/10/19 20:28 Dose: 2.5 mg Documented by: Ondansetron HCl (Zofran) 4 mg PO Q8HR PRN PRN Reason: Nausea Last Admin: 11/08/19 14:13 Dose: 4 mg Documented by: Pantoprazole Sodium (Protonix) 40 mg PO BID [facility] Last Admin: 11/10/19 20:28 Dose: 40 mg Documented by: Objective - Vital Signs Vital signs: Vital Signs Temp 98.5 F 11/09/19 11:51 Pulse 91 11/09/19 11:51 Resp 18 11/09/19 11:51 BP 120/74 11/09/19 11:51 Pulse Ox 98 11/09/19 11:51 Intake & Output 11/08/19 11/09/19 11/09/19 18:59 06:59 18:59 Intake Total 2349.603 Output Total 40 Balance 2309.603 Weight 77.111 kg 76.1 kg Intake: IV 1300 Sodium Chloride 0.9% 1, 1300 000 ml @ 150 mls/hr IV . Q6H40M [facility] Rx#:[id number] Intake, IV Titration 49.603 Amount Insulin Regular 100 unit 49.603 In Sodium Chloride 0.9% 100 ml @ 0.1 UNITS/KG/HR 7.788 mls/hr IV .L64H55K [facility] Rx#:[id number] Oral 1000 Output: Urine 40 Other: # Voids 3 0 - Exam PHYSICAL EXAMINATION: GENERAL: appears to be in no acute distress. HEENT: Pupils are round and equally reacting to light. EOMI. no scleral icterus. No conjunctival pallor. CARDIOVASCULAR: S1 and S2 heard. No additional sounds. PULMONARY: Bilateral breath sounds are positive. No wheeze or crackles. ABDOMEN: Soft, nontender, nondistended, normoactive bowel sounds. No palpable organomegaly. MUSCULOSKELETAL: No joint swelling or deformity. EXTREMITIES: No cyanosis, clubbing, or pedal edema. NEUROLOGICAL: Alert awake oriented 3, Gross neurological examination did not reveal any focal deficits. - Labs CBC & Chem 7: 11/10/19 08:11 11/10/19 08:11 Labs: Abnormal Lab Results - Last 24 Hours (Table) 11/08/19 11/08/19 11/08/19 Range/Units 05:43 12:24 13:18 RBC (3.80-5.40) m/uL Hgb (11.4-16.0) gm/dL Hct (34.0-46.0) % Plt Count (150-450) k/uL Sodium 135 L (137-145) mmol/L BUN 24 H (7-17) mg/dL Glucose 439 H (74-99) mg/dL POC Glucose (mg/dL) 406 H (75-99) mg/dL Hemoglobin A1c 11.0 H (4.0-6.0) % Calcium (8.4-10.2) mg/dL AST 77 H (14-36) U/L ALT 104 H (4-34) U/L Alkaline Phosphatase 130 H (38-126) U/L Total Protein 6.0 L (6.3-8.2) g/dL Albumin (3.5-5.0) g/dL 11/08/19 11/08/19 11/09/19 Range/Units 16:53 20:19 07:12 RBC (3.80-5.40) m/uL Hgb (11.4-16.0) gm/dL Hct (34.0-46.0) % Plt Count (150-450) k/uL Sodium (137-145) mmol/L BUN (7-17) mg/dL Glucose (74-99) mg/dL POC Glucose (mg/dL) 453 H 357 H 254 H (75-99) mg/dL Hemoglobin A1c (4.0-6.0) % Calcium (8.4-10.2) mg/dL AST (14-36) U/L ALT (4-34) U/L Alkaline Phosphatase (38-126) U/L Total Protein (6.3-8.2) g/dL Albumin (3.5-5.0) g/dL 08/03/1811/09/19 11/09/19 Range/Units 07:56 07:56 10:50 RBC 3.08 L (3.80-5.40) m/uL Hgb 10.3 L (11.4-16.0) gm/dL Hct 30.0 L (34.0-46.0) % Plt Count 74 L (150-450) k/uL Sodium 136 L (137-145) mmol/L BUN 18 H (7-17) mg/dL Glucose 226 H (74-99) mg/dL POC Glucose (mg/dL) 189 H (75-99) mg/dL Hemoglobin A1c (4.0-6.0) % Calcium 7.9 L (8.4-10.2) mg/dL AST 55 H (14-36) U/L ALT 86 H (4-34) U/L Alkaline Phosphatase (38-126) U/L Total Protein 5.3 L (6.3-8.2) g/dL Albumin 3.1 L (3.5-5.0) g/dL Assessment and Plan Assessment: ASSESSMENT DKA Pseudohyponatremia New onset diabetes Adenocarcinoma of the left lung status post lobectomy Liver mass Hypertension Fibromyalgia Asthma PLAN: Hemoglobin A1c is 11. Patient has been started on 20 units of Levemir and has been getting sliding scale of insulin. Her blood sugars have been running between 15-200's. MRI of the abdomen done and results pending . Oncology to follow-up on these results. Continue with the rest of her medication regimen. Further recommendations to follow depending on the progress of the patient.
[2019-11-10] MEDS: SODIUM CHLORIDE 0.9% 1,000 ML IV SCH ×4 (05:47→22:17)
[2019-11-10 07:00] LABS: Glucose,Whole Blood 250 mg/dL (75-99)
[2019-11-10] MEDS: INSULIN DETEMIR (LEVEMIR) 100 UNIT/ML SYR SQ SCH (08:04)
[2019-11-10] MEDS: MAG HYDROX/AL HYDROX/SIMETH 30 ML, LIDOCAINE VISCOUS 30 ML, diphenhydrAMINE ELIXIR 75 M... PO SCH ×12 (08:04→20:29)
[2019-11-10] MEDS: LORATADINE 10 MG TAB PO SCH (08:05)
[2019-11-10] MEDS: INSULIN ASPART (NovoLOG) 100 UNIT/ML VIAL SQ SCH ×7 (08:05→21:09)
[2019-11-10] MEDS: PANTOPRAZOLE 40 MG TABLET PO SCH ×2 (08:05→20:28)
[2019-11-10] MEDS: LOSARTAN 50 MG TAB PO SCH (08:05)
[2019-11-10] MEDS: FOLIC ACID 1 MG TAB PO SCH (08:05)
[2019-11-10 09:21] LABS: ALT 90 U/L (4-34); AST 66 U/L (14-36); African American GFR (CKD) >90 (>60 ml/min/1.73 sqM); Albumin 3.4 g/dL (3.5-5.0); Alkaline Phosphatase 125 U/L (38-126); Anion Gap 4 mmol/L; Blood Urea Nitrogen 14 mg/dL (7-17); Calcium 8.1 mg/dL (8.4-10.2); Carbon Dioxide 25 mmol/L (22-30); Chloride 106 mmol/L (98-107); Glucose 245 mg/dL (74-99); Magnesium 1.6 mg/dL (1.6-2.3); Non-African American GFR(CKD) >90 (>60 ml/min/1.73 sqM); Phosphorus 2.8 mg/dL (2.5-4.5); Sodium 135 mmol/L (137-145); Total Bilirubin 0.5 mg/dL (0.2-1.3); Total Protein 5.7 g/dL (6.3-8.2)
[2019-11-10 09:25] LABS: Basophils % (A) 0 %; Eosinophils % (A) 1 %; HCT 32.3 % (34.0-46.0); HGB 11.2 gm/dL (11.4-16.0); Lymphocytes # (A) 2.9 k/uL (1.0-4.8); Lymphocytes % (A) 52 %; MCH 33.6 pg (25.0-35.0); MCHC 34.6 g/dL (31.0-37.0); MCV 97.3 fL (80.0-100.0); Mean Platelet Volume 7.5; Monocytes # (A) 0.3 k/uL (0-1.0); Monocytes % (A) 6 %; Neutrophils # (A) 2.2 k/uL (1.3-7.7); Neutrophils % (A) 40 %; RBC 3.32 m/uL (3.80-5.40); RDW 15.2 % (11.5-15.5); WBC 5.5 k/uL (3.8-10.6)
[2019-11-10 09:32] LABS: Platelet Count 71 k/uL (150-450)
[2019-11-10 09:39] LABS: Potassium 3.7 mmol/L (3.5-5.1)
[2019-11-10] MEDS: LORazepam 0.5 MG TAB PO PRN ×2 (10:07→20:28)
[2019-11-10 11:56] LABS: Glucose,Whole Blood 198 mg/dL (75-99)
[2019-11-10] MEDS: ALBUTEROL NEBULIZED 2.5 MG/3 ML INHALATION PRN (15:43)
--- NOTE | 2019-11-10 16:25 | P.PN ---
Subjective Progress Note Date: 11/10/19 Principal diagnosis: DKA Discussed CT results with patient and Dr. William. MRI of liver was recommended for further evaluation. He LFTs are elevated but appear stable. Platelets are 71K today. Objective - Vital Signs Vital signs: Vital Signs Temp 98.3 F 11/10/19 12:33 Pulse 101 H 11/10/19 16:01 Resp 16 11/10/19 12:33 BP 140/88 11/10/19 12:33 Pulse Ox 99 11/10/19 12:33 Intake & Output 11/09/19 11/10/19 11/10/19 18:59 06:59 18:59 Intake Total 1750 850 Output Total 40 Balance -40 1750 850 Intake: IV 1500 Sodium Chloride 0.9% 1, 1500 000 ml @ 150 mls/hr IV . Q6H40M [facility] Rx#:[id number] Oral 250 850 Output: Urine 40 Other: # Voids 2 0 2 - Exam Constitutional General appearance: average body habitus, no acute distress - EENT Very dry mouth Eyes: EOMI, PERRLA, dentition normal ENT: NA/AT, normal oropharynx - Neck Neck: normal ROM - Respiratory Respiratory: bilateral: CTA - Cardiovascular Rhythm: regular Heart sounds: normal: S1, S2 leg Peripheral Edema: bilateral: Trace - Gastrointestinal General gastrointestinal: normal bowel sounds, soft hepatomegaly - Neurologic Neurologic: CNII-XII intact - Musculoskeletal Musculoskeletal: generalized weakness, strength equal bilaterally - Psychiatric Psychiatric: A&O x's 3, appropriate affect, intact judgment & insight - Labs CBC & Chem 7: 11/10/19 08:11 11/10/19 08:11 Labs: Abnormal Lab Results - Last 24 Hours (Table) 11/09/19 11/09/19 11/10/19 Range/Units 16:59 20:05 06:57 RBC (3.80-5.40) m/uL Hgb (11.4-16.0) gm/dL Hct (34.0-46.0) % Plt Count (150-450) k/uL Sodium (137-145) mmol/L Creatinine (0.52-1.04) mg/dL Glucose (74-99) mg/dL POC Glucose (mg/dL) 261 H 261 H 250 H (75-99) mg/dL Calcium (8.4-10.2) mg/dL AST (14-36) U/L ALT (4-34) U/L Total Protein (6.3-8.2) g/dL Albumin (3.5-5.0) g/dL 11/10/19 11/10/19 11/10/19 Range/Units 08:11 08:11 11:53 RBC 3.32 L (3.80-5.40) m/uL Hgb 11.2 L (11.4-16.0) gm/dL Hct 32.3 L (34.0-46.0) % Plt Count 71 L (150-450) k/uL Sodium 135 L (137-145) mmol/L Creatinine 0.47 L (0.52-1.04) mg/dL Glucose 245 H (74-99) mg/dL POC Glucose (mg/dL) 198 H (75-99) mg/dL Calcium 8.1 L (8.4-10.2) mg/dL AST 66 H (14-36) U/L ALT 90 H (4-34) U/L Total Protein 5.7 L (6.3-8.2) g/dL Albumin 3.4 L (3.5-5.0) g/dL Microbiology - Last 24 Hours (Table) 11/08/19 13:18 Blood Culture - Preliminary Blood No Growth after 48 hours Assessment and Plan (1) DKA (diabetic ketoacidoses) Current Visit: Yes Status: Acute Code(s): E11.10 - TYPE 2 DIABETES MELLITUS WITH KETOACIDOSIS WITHOUT COMA SNOMED Code(s): 715533146 (2) Diabetes mellitus, new onset Current Visit: Yes Status: Acute Code(s): E11.9 - TYPE 2 DIABETES MELLITUS WITHOUT COMPLICATIONS SNOMED Code(s): 943376928 (3) Hyperglycemia Current Visit: Yes Status: Acute Code(s): R73.9 - HYPERGLYCEMIA, UNSPECIFIED SNOMED Code(s): 00081368 (4) Lung cancer Current Visit: No Status: Acute Code(s): C34.90 - MALIGNANT NEOPLASM OF UNSP PART OF UNSP BRONCHUS OR LUNG SNOMED Code(s): 638418339 Plan: Assessment and Recommendations: 1. Adenocarcinoma of the Lung - EGFR POsitive - [facility] Non-smoker - Status POst Cycle 4 of Cisplatin and [place] - CT scans reviewed and no 2. DKA: - Improving - Will plan to follow-up with Endocrinology as an outpatient 3. Increased LFTs: - ?secondary to hepatic steatosis - Ultrasound of abdomen revealed increased density in liver - CT scan reviewed and will discuss further with radiologist to see if changes are seen from prior imaging. 4. Sore Throat and extreme dry mouth: - Cephacol lozenges 5. Dry Cough - New 6. Headaches and blurred vision: - Recent MRI negative for metastatic disease, this maybe secondary to DKA, Optho referral to further evaluate. PLan: - Await MRI Results - From oncology standpoint she is ok for discharge and will follow-up as outpatient for regular visits. - Check TSH and Ammonia levels as she is still persistetly forgetful and confused from baseline, although easily reoriented
--- NOTE | 2019-11-10 16:34 | MR ---
EXAMINATION TYPE: MR liver wo/w con DATE OF EXAM: 11/10/2019 COMPARISON: CT yesterday. HISTORY: increased density in liver, abnormal CT. Hx: lung cancer CONTRAST: Standard multiplanar, multisequence MRI departmental protocol utilizing 7.5 mL intravenous Gadavist g adolinium contrast. Imaging is performed of the abdomen focusing on the liver. FINDINGS: Liver: Corresponding to CT there is hepatomegaly. Corresponding to CT there is marked signal dropout on in and out of phase imaging consistent with marked diffuse fatty infiltration. Corresponding to CT in the deep left hepatic lobe there is a oval area measuring 3.0 x 2.2 cm that is slightly hypointen se relative to remainder of liver on T1-weighted images and is noted also more prominently hypointens e to remainder of liver on T2-weighted images. No signal dropout. Dynamic postcontrast images show th e area to be slightly hyperintense to remainder of liver on all phases with some crossing vessels samuel ntified. No suspicious enhancement. No true hepatic arterial phase as the first phase shows contrast filling IVC and hepatic veins. No surrounding ascites. Portal vein is patent. Draining hepatic veins are slitlike but patent. Gallbladder is within normal limits. No biliary dilatation noted. No additio nal concerning intrahepatic masses. Other: Lung bases are clear. Spleen, pancreas, both adrenal glands are within normal limits. No juan antonio rning renal mass or hydronephrosis. Occasional tiny punctate thin-walled cysts bilaterally in both ki dneys. Renal calculi are better seen on CT versus MRI. No abdominal ascites. No suspicious bowel dila tation. Visualized osseous structures are intact. IMPRESSION: Marked fatty infiltration of liver and overall hepatomegaly redemonstrated. Area of juan antonio rn centrally in the left hepatic lobe favors focal fatty sparing given persistent visualization of sm all crossing vessels or less likely other nonaggressive etiology such as FNH or hepatic adenoma both which may have a typical appearance of background marked fatty infiltration. Metastatic disease to li laura from lung cancer is not suspected based on imaging characteristics.
[2019-11-10 16:56] LABS: Glucose,Whole Blood 313 mg/dL (75-99)
[2019-11-10 19:49] LABS: Folate, Serum 14.1 ng/mL
[2019-11-10] MEDS: OLANZapine 2.5 MG TAB PO SCH (20:28)
[2019-11-10 20:40] LABS: Glucose,Whole Blood 301 mg/dL (75-99)
[2019-11-11] MEDS: SODIUM CHLORIDE 0.9% 1,000 ML IV SCH (04:37)
[2019-11-11 07:08] LABS: Glucose,Whole Blood 223 mg/dL (75-99)
[2019-11-11] MEDS: INSULIN DETEMIR (LEVEMIR) 100 UNIT/ML SYR SQ SCH (08:15)
[2019-11-11] MEDS: INSULIN ASPART (NovoLOG) 100 UNIT/ML VIAL SQ SCH ×4 (08:15→14:11)
[2019-11-11] MEDS: PANTOPRAZOLE 40 MG TABLET PO SCH (08:16)
[2019-11-11] MEDS: FOLIC ACID 1 MG TAB PO SCH (08:16)
[2019-11-11] MEDS: LOSARTAN 50 MG TAB PO SCH (08:16)
[2019-11-11] MEDS: LORATADINE 10 MG TAB PO SCH (08:16)
[2019-11-11] MEDS: MAG HYDROX/AL HYDROX/SIMETH 30 ML, LIDOCAINE VISCOUS 30 ML, diphenhydrAMINE ELIXIR 75 M... PO SCH ×4 (08:17)
[2019-11-11 09:02] LABS: Basophils % (A) 0 %; Eosinophils % (A) 1 %; HCT 32.8 % (34.0-46.0); HGB 10.8 gm/dL (11.4-16.0); Lymphocytes # (A) 2.2 k/uL (1.0-4.8); Lymphocytes % (A) 41 %; MCH 32.3 pg (25.0-35.0); MCHC 32.8 g/dL (31.0-37.0); MCV 98.4 fL (80.0-100.0); Macrocytosis Slight; Mean Platelet Volume 7.9; Monocytes # (A) 0.4 k/uL (0-1.0); Monocytes % (A) 7 %; Neutrophils # (A) 2.5 k/uL (1.3-7.7); Neutrophils % (A) 47 %; RBC 3.33 m/uL (3.80-5.40); RDW 15.3 % (11.5-15.5); WBC 5.4 k/uL (3.8-10.6)
[2019-11-11 09:08] LABS: Platelet Count 77 k/uL (150-450)
[2019-11-11 09:10] LABS: African American GFR (CKD) >90 (>60 ml/min/1.73 sqM); Anion Gap 6 mmol/L; Blood Urea Nitrogen 11 mg/dL (7-17); Calcium 8.7 mg/dL (8.4-10.2); Carbon Dioxide 25 mmol/L (22-30); Chloride 105 mmol/L (98-107); Glucose 235 mg/dL (74-99); Non-African American GFR(CKD) >90 (>60 ml/min/1.73 sqM); Sodium 136 mmol/L (137-145)
[2019-11-11 11:16] LABS: Glucose,Whole Blood 227 mg/dL (75-99)
[2019-11-11 11:41] VITALS: BP 138/94; PULSE 95; RESP 16; TEMP 98.6
--- NOTE | 2019-11-11 15:59 | P.PN ---
Subjective Progress Note Date: 11/11/19 Principal diagnosis: DKA MRI of the liver reviewed and benign appearance favored, not felt to be metastatic or malignant. Feeling better today, ready for discharge Objective - Vital Signs Vital signs: Vital Signs Temp 98.1 F 11/11/19 04:27 Pulse 86 11/11/19 04:27 Resp 18 11/11/19 04:27 BP 151/96 11/11/19 04:27 Pulse Ox 98 11/11/19 04:27 Intake & Output 11/10/19 11/11/19 11/11/19 18:59 06:59 18:59 Intake Total 850 2870 Balance 850 2870 Intake: IV 600 Sodium Chloride 0.9% 1, 600 000 ml @ 150 mls/hr IV . Q6H40M [facility] Rx#:[id number] Intake, IV Titration 1200 Amount Sodium Chloride 0.9% 1, 1200 000 ml @ 150 mls/hr IV . Q6H40M [facility] Rx#:[id number] Oral 850 1070 Other: # Voids 2 2 1 - Exam Constitutional General appearance: average body habitus, no acute distress - EENT Very dry mouth Eyes: EOMI, PERRLA, dentition normal ENT: NA/AT, normal oropharynx - Neck Neck: normal ROM - Respiratory Respiratory: bilateral: CTA - Cardiovascular Rhythm: regular Heart sounds: normal: S1, S2 leg Peripheral Edema: bilateral: Trace - Gastrointestinal General gastrointestinal: normal bowel sounds, soft hepatomegaly - Neurologic Neurologic: CNII-XII intact - Musculoskeletal Musculoskeletal: generalized weakness, strength equal bilaterally - Psychiatric Psychiatric: A&O x's 3, appropriate affect, intact judgment & insight - Labs CBC & Chem 7: 11/11/19 08:24 11/11/19 08:24 Labs: Abnormal Lab Results - Last 24 Hours (Table) 11/10/19 11/10/19 11/10/19 Range/Units 08:11 11:53 16:54 RBC (3.80-5.40) m/uL Hgb (11.4-16.0) gm/dL Hct (34.0-46.0) % Plt Count (150-450) k/uL Sodium (137-145) mmol/L Creatinine (0.52-1.04) mg/dL Glucose (74-99) mg/dL POC Glucose (mg/dL) 198 H 313 H (75-99) mg/dL Vitamin B12 1312.0 H (200.0-944.0) pg/mL 11/10/19 11/11/19 11/11/19 Range/Units 20:39 07:06 08:24 RBC 3.33 L (3.80-5.40) m/uL Hgb 10.8 L (11.4-16.0) gm/dL Hct 32.8 L (34.0-46.0) % Plt Count 77 L (150-450) k/uL Sodium (137-145) mmol/L Creatinine (0.52-1.04) mg/dL Glucose (74-99) mg/dL POC Glucose (mg/dL) 301 H 223 H (75-99) mg/dL Vitamin B12 (200.0-944.0) pg/mL 11/11/19 Range/Units 08:24 RBC (3.80-5.40) m/uL Hgb (11.4-16.0) gm/dL Hct (34.0-46.0) % Plt Count (150-450) k/uL Sodium 136 L (137-145) mmol/L Creatinine 0.44 L (0.52-1.04) mg/dL Glucose 235 H (74-99) mg/dL POC Glucose (mg/dL) (75-99) mg/dL Vitamin B12 (200.0-944.0) pg/mL Microbiology - Last 24 Hours (Table) 11/08/19 13:18 Blood Culture - Preliminary Blood No Growth after 48 hours Assessment and Plan (1) DKA (diabetic ketoacidoses) Status: Acute Code(s): E11.10 - TYPE 2 DIABETES MELLITUS WITH KETOACIDOSIS WITHOUT COMA SNOMED Code(s): 170551652 (2) Diabetes mellitus, new onset Status: Acute Code(s): E11.9 - TYPE 2 DIABETES MELLITUS WITHOUT COMPLICATIONS SNOMED Code(s): 205892204 (3) Hyperglycemia Status: Acute Code(s): R73.9 - HYPERGLYCEMIA, UNSPECIFIED SNOMED Code(s): 03582582 (4) Lung cancer Status: Acute Code(s): C34.90 - MALIGNANT NEOPLASM OF UNSP PART OF UNSP BRONCHUS OR LUNG SNOMED Code(s): 186103561 Plan: Assessment and Recommendations: 1. Adenocarcinoma of the Lung - EGFR POsitive - [facility] Non-smoker - Status POst Cycle 4 of Cisplatin and [place] - CT scans reviewed, MRI liver reveals consistent with benign etiology, metastatic or malignancy not suspected 2. DKA: - Improving - Will plan to follow-up with Endocrinology as an outpatient 3. Increased LFTs: - ?secondary to hepatic steatosis - See #1 4. Sore Throat and extreme dry mouth: - Cephacol lozenges 5. Dry Cough - New 6. Headaches and blurred vision: - Recent MRI negative for metastatic disease, this maybe secondary to DKA, Optho referral to further evaluate. PLan: - Reviewed MRI Results - From oncology standpoint she is ok for discharge and will follow-up as outpatient for regular visits. - Follow-up with Dr. Holcomb in 2 weeks 11/20 @10:15
--- NOTE | 2019-11-12 01:04 | P.DS ---
Providers Date of admission: 11/07/19 23:21 Expected date of discharge: 11/11/19 Attending physician: Paul More Consults: 11/07/19 22:54 Consult Physician Stat Consulting Provider: Afia Martínez Consult Reason/Comments: ICU management Do you want consulting provider notified?: Already Contacted 11/08/19 09:33 Consult Physician Routine Consulting Provider: Clarice Holcomb Consult Reason/Comments: lung cancer Do you want consulting provider notified?: Already Contacted Primary care physician: Milena Almonte [facility] Course: Ms. 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 Patient states that she was started on chemotherapy about 6 weeks ago and that she was receiving steroids with her chemotherapy. Patient does not have history of diabetes but she did have gestational diabetes. Patient denied having any fevers chills or rigors, no cough or difficulty in breathing, no palpitations or chest pain, no abdominal pain nausea vomiting or diarrhea, no dysuria or hematur ia. Patient went to 1 of her IV infusion centers, which she was ordered blood work and it was found to be very high and she was directed to go to the ER. In the emergency patient had labs done showing initial blood sugar of 1074, sodium of 129, with an anion gap of 21. Her urine was positive for 4+ glucose 1+ ketones. So she was admitted with a diagnosis of DKA. Patient was started on IV insulin, given IV fluids as per DKA protocol. Currently patient is off of insulin drip, denies having polyuria or polydipsia. She only complains of feeling extremely fatigued and weak. She denies having any focal weakness. Hospital course -patient was admitted with DKA to the ICU, after closing of her gap and after she tolerated diet by by mouth, she was transferred to the general medical floors patient had an ultrasound of the abdomen for increased LFTs which showed hypoechoic liver lesion, follow-up MRI was done and it showed marked fatty infiltration of the liver with hepatomegaly and persistent visualization of small crossing vessels in the left hepatic lobe etiology hepatic adenoma or FNH, metastatic disease to liver from lung cancer is not suspected based on imaging characteristics. Eventually oncology was okay with discharging home, to follow-up with them as outpatient. Patient's blood sugars have been maintained within normal limits on 20 units of Lantus and 6 to 8 units of NovoLog 3 times daily AC. Her hemoglobin A1c came back at 11. The results were discussed with the patient in detail. She will be sent home on 20 units of Lantus and 6 units of 3 times daily AC NovoLog. Diabetic education has been provided to the patient. Diabetic supplies also taken care of. DISCHARGE DIAGNOSIS DKA Pseudohyponatremia New onset diabetes, Hba1c- 11 Adenocarcinoma of the left lung status post lobectomy Hypertension Fibromyalgia Asthma Follow-up patient is advised to follow-up with her PCP in 2 to 3 days, follow-up with oncology in 1 week. Minutes spent with the discharge of the patient, with more than 50% of the time spent on counseling and coordination of care. Patient Condition at Discharge: Fair Plan - Discharge Summary Discharge Rx Participant: Yes New Discharge Prescriptions: New Insulin Detemir (Levemir) [Levemir] 20 unit SQ DAILY@0700 30 Days #3 syr Nystatin 100,000 Unit/ml Susp [Mycostatin Oral Susp] 3,000,000 unit PO TID 7 Days #30 ml INSULIN ASPART (NovoLOG) [NovoLOG (formulary)] 6 unit SQ AC-TID 30 Days #3 v ial Continue Ondansetron [Zofran] 4 mg PO Q8HR PRN PRN Reason: Nausea Butalb/APAP/Caff 50-325-40Mg [Fioricet 50-325-40] 1 tab PO Q4H PRN PRN Reason: HEADACHES Omeprazole [PriLOSEC] 40 mg PO DAILY Losartan [Cozaar] 50 mg PO DAILY Folic Acid 1 mg PO DAILY LORazepam [Ativan] 0.5 mg PO Q6HR PRN PRN Reason: Anxiety Metoprolol Tartrate [Lopressor] 50 mg PO DAILY PRN PRN Reason: Blood Pressure - High Fluticasone/Salmeterol [Advair 100-50 Diskus] 1 puff PO DAILY PRN PRN Reason: Shortness Of Breath Cetirizine HCl [Zyrtec] 10 mg PO DAILY Albuterol Inhaler [Ventolin Hfa Inhaler] 1 puff INHALATION RT-QID PRN PRN Reason: Shortness Of Breath OLANZapine [ZyPREXA] 2.5 mg PO HS Discharge Medication List Butalb/APAP/Caff 50-325-40Mg [Fioricet 50-325-40] 1 tab PO Q4H PRN 09/12/19 [History] Folic Acid 1 mg PO DAILY 09/12/19 [History] Losartan [Cozaar] 50 mg PO DAILY 09/12/19 [History] Omeprazole [PriLOSEC] 40 mg PO DAILY 09/12/19 [History] Ondansetron [Zofran] 4 mg PO Q8HR PRN 09/12/19 [History] LORazepam [Ativan] 0.5 mg PO Q6HR PRN 09/13/19 [History] Metoprolol Tartrate [Lopressor] 50 mg PO DAILY PRN 09/13/19 [History] Albuterol Inhaler [Ventolin Hfa Inhaler] 1 puff INHALATION RT-QID PRN 11/07/19 [History] Cetirizine HCl [Zyrtec] 10 mg PO DAILY 11/07/19 [History] Fluticasone/Salmeterol [Advair 100-50 Diskus] 1 puff PO DAILY PRN 11/07/19 [History] OLANZapine [ZyPREXA] 2.5 mg PO HS 11/07/19 [History] INSULIN ASPART (NovoLOG) [NovoLOG (formulary)] 6 unit SQ AC-TID 30 Days #3 vial 11/11/19 [Rx] Insulin Detemir (Levemir) [Levemir] 20 unit SQ DAILY@0700 30 Days #3 syr 11/11/19 [Rx] Nystatin 100,000 Unit/ml Susp [Mycostatin Oral Susp] 3,000,000 unit PO TID 7 Days #30 ml 11/11/19 [Rx] Follow up Appointment(s)/Referral(s): Hardy Mejia MD [STAFF PHYSICIAN] - 11/25/19 2:30 pm Milena Garg MD [Primary Care Provider] - 1-2 days (The office will call you with appointment.) Clarice Holcomb MD [STAFF PHYSICIAN] - 11/21/19 10:15 am Patient Instructions/Handouts: Insulin Aspart, Recombinant (By injection), Insulin Detemir (By injection), Diabetic Ketoacidosis (DC), Type 2 Diabetes in Adults: New Diagnosis (DC) Activity/Diet/Wound Care/Special Instructions: Glucometer and testing supplies are at [facility], please make sure this is delivered to patient prior to d/c. Discharge Disposition: HOME SELF-CARE
== END 2019-11-11 15:22 | disposition home or self-care (01) | DRG 638 ==
LOC: EC 21:03 → 2SICU 23:21 → 5NMEDONC 11-08 21:04
PROVIDERS: ADMIT Hospitalist; ATTEND Hospitalist
DX: E11.10 Type 2 diabetes mellitus with ketoacidosis without coma (principal); C34.32 Malignant neoplasm of lower lobe, left bronchus or lung; K76.0 Fatty (change of) liver, not elsewhere classified; D13.4 Benign neoplasm of liver; I10 Essential (primary) hypertension; J45.909 Unspecified asthma, uncomplicated; M79.7 Fibromyalgia; F41.9 Anxiety disorder, unspecified; F32.81 Premenstrual dysphoric disorder; H93.19 Tinnitus, unspecified ear; Z79.51 Long term (current) use of inhaled steroids; Z79.899 Other long term (current) drug therapy; Z77.22 Contact with and (suspected) exposure to environmental tobacco smoke (acute) (chronic); Z86.32 Personal history of gestational diabetes; Z90.2 Acquired absence of lung [part of]; Z92.21 Personal history of antineoplastic chemotherapy; Z98.890 Other specified postprocedural states; Z86.39 Personal history of other endocrine, nutritional and metabolic disease; Z87.442 Personal history of urinary calculi
CPT/HCPCS: 36415; 71045; 71260; 74177; 74183; 76700; 80048; 80051; 80053; 81001; 82009; 82140; 82150; 82565; 82607; 82746; 82803; 82947; 83036; 83605; 83690; 83735; 83921; 84100; 84443; 84520; 85025; 85027; 85610; 87040; 93005; 94640; 96360; 96361; 99291

== ENCOUNTER → 2020-03-27 | Outpatient (CLI) | payer BC ==
--- NOTE | 2020-03-27 11:32 | ECHOF ---
Referral Reason:Z01.818 chemo exposure MEASUREMENTS -------- HEIGHT: 160.0 cm WEIGHT: 72.6 kg BP: RVIDd: 2.8 cm (< 3.3) IVSd: 0.9 cm (0.6 - 1.1) LVIDd: 3.7 cm (3.9 - 5.3) LVPWd: 1.1 cm (0.6 - 1.1) IVSs: 1.5 cm LVIDs: 2.3 cm LVPWs: 1.3 cm LA Diam: 3.1 cm (2.7 - 3.8) LAESV Index (A-L): 23.21 ml/m Ao Diam: 2.6 cm (2.0 - 3.7) AV Cusp: 2.1 cm (1.5 - 2.6) LA Diam: 2.8 cm (2.7 - 3.8) MV EXCURSION: 14.881 mm (> 18.000) MV EF SLOPE: 87 mm/s (70 - 150) EPSS: 0.5 cm MV E Hany: 0.44 m/s MV DecT: 192 ms MV A Hany: 0.77 m/s MV E/A Ratio: 0.58 FINDINGS -------- Sinus rhythm. This was a technically good study. LV size, wall thickness and systolic function are normal, with an EF greater than 55%. The left winter tricular size is normal. The right ventricle is normal in size. Normal LA size by volume 22+/-6 ml/m2. The right atrial size is normal. The aortic valve is trileaflet, and appears structurally normal. No aortic stenosis or regurgitation. Mild mitral regurgitation is present. Mild tricuspid regurgitation present. Right ventricular systolic pressure is normal at < 35 mmHg. There is no pulmonic regurgitation present. The aortic root size is normal. There is no pericardial effusion. CONCLUSIONS -------- 1. LV size, wall thickness and systolic function are normal, with an EF greater than 55%. 2. The left ventricular size is normal. 3. The right ventricle is normal in size. 4. Normal LA size by volume 22+/-6 ml/m2. 5. The right atrial size is normal. 6. Mild mitral regurgitation is present. 7. Mild tricuspid regurgitation present. 8. There is no pericardial effusion. MANAGER PRINT: Gaby Miller RDCS
== END | disposition home or self-care (01) ==
LOC: RADECHMAIN 08:53
PROVIDERS: ATTEND Internal Medicine Hematology & Oncology
DX: I08.1 Rheumatic disorders of both mitral and tricuspid valves (principal)
CPT/HCPCS: 93306

== ENCOUNTER → 2020-07-24 | Outpatient (CLI) | payer BC ==
--- NOTE | 2020-07-24 11:00 | ECHOF ---
Referral Reason:Z01.818 chemo exposure MEASUREMENTS -------- HEIGHT: 160.0 cm WEIGHT: 72.6 kg BP: RVIDd: 3.1 cm (< 3.3) IVSd: 1.1 cm (0.6 - 1.1) LVIDd: 3.3 cm (3.9 - 5.3) LVPWd: 1.2 cm (0.6 - 1.1) IVSs: 1.2 cm LVIDs: 2.8 cm LVPWs: 1.3 cm LA Diam: 2.9 cm (2.7 - 3.8) LAESV Index (A-L): 22.85 ml/m Ao Diam: 2.5 cm (2.0 - 3.7) AV Cusp: 2.0 cm (1.5 - 2.6) LA Diam: 3.3 cm (2.7 - 3.8) MV EXCURSION: 18.829 mm (> 18.000) MV EF SLOPE: 78 mm/s (70 - 150) EPSS: 0.2 cm MV E Hany: 0.74 m/s MV DecT: 213 ms MV A Hany: 1.01 m/s MV E/A Ratio: 0.74 RAP: 5.00 mmHg RVSP: 22.60 mmHg FINDINGS -------- Sinus rhythm. This was a technically good study. LV size, wall thickness and systolic function are normal, with an EF greater than 55%. The left winter tricular size is normal. Left ventricular wall thickness is normal. Overall left ventricular syst olic function is normal with, an EF between 55 - 60 %. The diastolic filling pattern is normal for the age of the patient 11.05. The right ventricle is normal in size. Normal LA size by volume 22+/-6 ml/m2. The right atrial size is normal. The aortic valve is trileaflet, and appears structurally normal. No aortic stenosis or regurgitation. The mitral valve is normal. Mild mitral regurgitation is present. The tricuspid valve appears structurally normal. Mild tricuspid regurgitation present. Right vent ricular systolic pressure is normal at < 35 mmHg. There is no pulmonic regurgitation present. The aortic root size is normal. There is no pericardial effusion. CONCLUSIONS -------- 1. Overall left ventricular systolic function is normal with, an EF between 55 - 60 %. 2. Normal LA size by volume 22+/-6 ml/m2. 3. The aortic valve is trileaflet, and appears structurally normal. No aortic stenosis or regurgitati on. 4. Mild mitral regurgitation is present. 5. Mild tricuspid regurgitation present. 6. There is no pericardial effusion. [facility] MANAGER: Gaby Miller RDCS
== END | disposition home or self-care (01) ==
LOC: RADECHMAIN 08:34
PROVIDERS: ATTEND Internal Medicine Hematology & Oncology
DX: I08.1 Rheumatic disorders of both mitral and tricuspid valves (principal)
CPT/HCPCS: 93306

== ENCOUNTER → 2020-10-25 | Outpatient (CLI) | payer BC ==
--- NOTE | 2020-10-26 11:23 | ECHOF ---
Referral Reason:Z01.818 Chemo exposure MEASUREMENTS -------- HEIGHT: 160.0 cm WEIGHT: 72.6 kg BP: RVIDd: 2.8 cm (< 3.3) IVSd: 1.1 cm (0.6 - 1.1) LVIDd: 4.4 cm (3.9 - 5.3) LVPWd: 1.2 cm (0.6 - 1.1) IVSs: 1.5 cm LVIDs: 3.2 cm LVPWs: 1.1 cm LAESV Index (A-L): 19.96 ml/m Ao Diam: 2.9 cm (2.0 - 3.7) AV Cusp: 2.2 cm (1.5 - 2.6) LA Diam: 3.1 cm (2.7 - 3.8) MV EXCURSION: 15.184 mm (> 18.000) MV EF SLOPE: 62 mm/s (70 - 150) EPSS: 0.4 cm MV E Hany: 0.58 m/s MV DecT: 188 ms MV A Hany: 0.82 m/s MV E/A Ratio: 0.71 RAP: 5.00 mmHg RVSP: 21.33 mmHg FINDINGS -------- Sinus rhythm. This was a technically good study. LV size, wall thickness and systolic function are normal, with an EF greater than 55%. The left winter tricular size is normal. The right ventricle is normal in size. Normal LA size by volume 22+/-6 ml/m2. The right atrial size is normal. The aortic valve is trileaflet, and appears structurally normal. No aortic stenosis or regurgitation. Mild mitral regurgitation is present. Mild tricuspid regurgitation present. Right ventricular systolic pressure is normal at < 35 mmHg. There is no pulmonic regurgitation present. There is no pericardial effusion. CONCLUSIONS -------- 1. LV size, wall thickness and systolic function are normal, with an EF greater than 55%. 2. The left ventricular size is normal. 3. The right ventricle is normal in size. 4. Normal LA size by volume 22+/-6 ml/m2. 5. The right atrial size is normal. 6. The aortic valve is trileaflet, and appears structurally normal. No aortic stenosis or regurgitati on. 7. Mild mitral regurgitation is present. 8. Mild tricuspid regurgitation present. 9. There is no pericardial effusion. PIE FILLER: Gaby Miller RDCS
== END | disposition home or self-care (01) ==
LOC: RADECHMAIN 15:35
PROVIDERS: ATTEND Internal Medicine Hematology & Oncology
DX: Z01.818 Encounter for other preprocedural examination (principal); I08.1 Rheumatic disorders of both mitral and tricuspid valves
CPT/HCPCS: 93306

== ENCOUNTER 2020-10-26 09:49 | Day surgery (SDC) | payer BC ==
[2020-10-24 11:21] VITALS: BMI 28.3
[~2020-10-26 09:49] MED LIST changes: +ACETAMINOPHEN TAB 500 MG TAB PO PRN; +DEXAMETHASONE SOD PHOSPHATE 4 MG/ML 1 ML VIAL IV ONE; -HEPARIN SODIUM,PORCINE 5,000 UNIT/ML 1 ML VIAL SQ ONE; +HEPARIN SODIUM,PORCINE/PF 5,000 UNIT/0.5 ML SYRINGE SQ PRN; +HYDROmorphone 0.5 MG/0.5 ML SYRINGE IVP PRN; +MIDAZOLAM 2 MG/2 ML VIAL IV PRN; +ONDANSETRON 4 MG/2 ML VIAL IVP ONE; -Pre Op ABX Message 1 EACH MISC MISCELLANE ONE
[2020-10-26 10:17] VITALS: RESP 16; TEMP 98.6
[2020-10-26 10:34] LABS: Glucose,Whole Blood 108 mg/dL (75-99)
--- NOTE | 2020-10-26 11:46 | P.GSHP ---
History of Present Illness H&P Date: 10/26/20 Chief Complaint: Lung cancer Patient is today for Port-A-Cath removal. Patient had port placed about a year ago for chemotherapy for treatment of lung cancer. Here today for port removal. Patient doing well. No issues with the port. 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 History of Any Multi-Drug Resistant Organisms: None Reported Additional Past Surgical History / Comment(s): LEFT LOWER LUNG REMOVED 07/29/19. LIPOSUCTIONS, port a cath insertion Past Anesthesia/Blood Transfusion Reactions: Family History of Problems w/ Anesthesia, Motion Sickness Additional Past Anesthesia/Blood Transfusion Reaction / Comment(s): pts mother had respiratory depression caused by propofol Past Psychological History: No Psychological Hx Reported Smoking Status: Never smoker Past Alcohol Use History: None Reported, Occasional Additional Past Alcohol Use History / Comment(s): . Past Drug Use History: None Reported - Past Family History Mother Family Medical History: No Reported History Medications and Allergies Home Medications Medication Instructions Recorded Confirmed Type Losartan [Cozaar] 50 mg PO DAILY 09/12/19 10/26/20 History Albuterol Inhaler [Ventolin Hfa 1 puff INHALATION RT-QID PRN 11/07/19 10/26/20 History Inhaler] Mv-Min/Vit C/Glut/Lysine/Hb124 1 each PO DAILY 10/24/20 10/26/20 History [Immune Support Chewable Tablet] Osimertinib Mesylate [Tagrisso] 80 mg PO DAILY 10/24/20 10/26/20 History Pioglitazone [Actos] 15 mg PO DAILY 10/24/20 10/26/20 History metFORMIN HCL [Glucophage] 500 mg PO DAILY 10/24/20 10/26/20 History Allergies Allergy/AdvReac Type Severity Reaction Status Date / Time No Known Allergies Allergy Verified 10/26/20 10:14 Surgical - Exam Vital Signs Temp Pulse Resp BP Pulse Ox 98.6 F 90 16 120/87 98 10/26/20 10:16 10/26/20 10:16 10/26/20 10:16 10/26/20 10:16 10/26/20 10:16 Physical exam: General: Well-developed, well-nourished HEENT: Normocephalic, sclerae nonicteric Abdomen: Nontender, nondistended Extremities: No edema Neuro: Alert and oriented Chest: Right-sided port in place Results - Labs Abnormal Lab Results - Last 24 Hours (Table) 10/26/20 Range/Units 10:32 POC Glucose (mg/dL) 108 H (75-99) mg/dL Assessment and Plan (1) Lung cancer Narrative/Plan: Will proceed with Port-A-Cath removal at this time. Current Visit: No Status: Acute Code(s): C34.90 - MALIGNANT NEOPLASM OF UNSP PART OF UNSP BRONCHUS OR LUNG SNOMED Code(s): 377118308
[2020-10-26] MEDS ORDERED: fentaNYL (PF) 50 MCG/ML 2 ML AMP ONE (11:51)
[2020-10-26] MEDS ORDERED: KETAMINE 10 MG/ML 20 ML VIAL ONE (11:51)
[2020-10-26] MEDS ORDERED: LIDOCAINE 1% INJ 10MG/ML (20 ML MDV) ONE (11:51)
[2020-10-26] MEDS ORDERED: MIDAZOLAM 2 MG/2 ML VIAL ONE (11:51)
[2020-10-26] MEDS ORDERED: PROPOFOL 10 MG/ML 20 ML VIAL IV ONE (11:51)
[2020-10-26] MEDS ORDERED: LIDOCAINE 1% INJ 10MG/ML (20 ML MDV) SQ ONE ×2 (12:07→12:24)
[2020-10-26] MEDS ORDERED: NALOXONE 0.4 MG/ML 1 ML VIAL IV PRN (12:41)
[2020-10-26] MEDS ORDERED: HYDROcodone/APAP 5-325MG 1 EACH TAB PO PRN (12:41)
--- NOTE | 2020-10-26 12:42 | P.OP ---
Date of Procedure: 10/26/20 Procedure(s) Performed: PREOPERATIVE DIAGNOSIS: Lung cancer POSTOPERATIVE DIAGNOSIS: Same PROCEDURE: Port-A-Cath removal SURGEON: Sebas EBL: Minimal ANESTHESIA: Sedation COMPLICATIONS: None OPERATIVE PROCEDURE: Patient was placed in the supine position. The patient was sedated per anesthesia that time. The chest was prepped and draped in the usual sterile fashion. The skin was localized with Marcaine solution. The previous incision was re-incised using a scalpel. The port was easily excised using a ccommodation of blunt dissection sharp dissection and electrocautery. The subcutaneous tissues were reapproximated using 3-0 Vicryl sutures. The skin was reapproximated using 4-0 Monocryl sutures. Skin glue was then applied. DISPOSITION: Stable to recovery room
[2020-10-26 12:56] VITALS: BP 132/74; PULSE 90
== END 2020-10-26 13:21 | disposition home or self-care (01) ==
LOC: OR 09:49
PROVIDERS: ATTEND Surgery
DX: Z45.2 Encounter for adjustment and management of vascular access device (principal); J45.909 Unspecified asthma, uncomplicated; I10 Essential (primary) hypertension; M19.90 Unspecified osteoarthritis, unspecified site; Z85.118 Personal history of other malignant neoplasm of bronchus and lung; Z92.21 Personal history of antineoplastic chemotherapy; E09.9 Drug or chemical induced diabetes mellitus without complications; T38.0X5D Adverse effect of glucocorticoids and synthetic analogues, subsequent encounter; Z87.442 Personal history of urinary calculi; Z96.0 Presence of urogenital implants; Z90.2 Acquired absence of lung [part of]; Z83.6 Family history of other diseases of the respiratory system; Z79.84 Long term (current) use of oral hypoglycemic drugs; Z79.899 Other long term (current) drug therapy
CPT/HCPCS: 81025; 36589; J2250; J1100; J0690; J2405; J2001; J3010; J2704; J1644